=== PATIENT | female | born 1955 | race Caucasian/White ===

== ENCOUNTER 2020-01-28 11:40 | Outpatient (REF) | payer OTHER, SELFPAY ==
[2020-01-28 14:10] LABS: Anion Gap 11 (12-20); Blood Urea Nitrogen 12 mg/dL (9-16); Calcium 9.3 mg/dL (8.4-10.2); Carbon Dioxide 34 mmol/L (22-29); Chloride 99 mmol/L (96-108); Estimated Glomerular Filt Rate > 60; Glucose Random 97 mg/dL (60-115); Potassium 3.6 mmol/l (3.3-5.1); Sodium 140 mmol/L (135-145)
[2020-01-28 14:34] LABS: Free T4 (Free Thyroxine) 0.89 ng/dL (0.71-1.85); Thyroid Stimulating Hormone 3.98 uIU/mL (0.32-4.0)
== END 2020-01-28 11:41 | disposition home or self-care (01) ==
LOC: HO.10HDL 11:40
PROVIDERS: Visit Provider Internal Medicine
DX: E03.9 Hypothyroidism, unspecified (principal); I10 Essential (primary) hypertension
CPT/HCPCS: 80048; 84439; 84443

== ENCOUNTER 2020-04-29 11:09 | Outpatient (REF) | payer OTHER, SELFPAY ==
[2020-04-29 13:33] LABS: MANUAL DIFF FLAG NO
[2020-04-29 13:37] LABS: Basophils Percent Auto 0.6 % (0-2); Eosinophils Absolute Auto 0.2 X10*3/uL (0.0-0.4); Eosinophils Percent Auto 3.4 % (0-4); Imm Gran Abs Auto 0.01 X10*3/uL (0.00-0.03); Imm Gran Pct Auto 0.2 % (0.0-0.4); Lymphocytes Absolute Auto 2.7 X10*3/uL (1.2-4.9); Lymphocytes Percent Auto 40.6 % (20-40); Mean Corpuscular HGB Conc 34.9 g/dl (31.0-35.0); Mean Corpuscular Hemoglobin 32.3 pg (27.0-33.0); Mean Corpuscular Volume 92.7 fL (80-98); Mean Platelet Volume 9.6 fL (9.4-12.3); Monocytes Absolute Auto 0.6 X10*3/uL (0.1-1.2); Monocytes Percent Auto 8.6 % (2-11); Neutrophils Percent Auto 46.6 % (45-73); Platelet Count 148 X10*3/uL (160-400); Red Blood Count 4.64 X10*6/uL (4.20-5.50); Red Cell Distribution Width 11.8 % (11.0-16.0); White Blood Count 6.5 X10*3/uL (4.8-10.8)
[2020-04-29 14:04] LABS: Alanine Aminotransferase 62 U/L (0-31); Albumin Level 4.4 g/dL (3.5-5.0); Alkaline Phosphatase 75 U/L (39-117); Anion Gap 12 (12-20); Aspartate Amino Transferase 51 U/L (5-31); Blood Urea Nitrogen 11 mg/dL (9-16); Calcium 9.4 mg/dL (8.4-10.2); Carbon Dioxide 30 mmol/L (22-29); Chloride 103 mmol/L (96-108); Estimated Glomerular Filt Rate > 60; Glucose Random 97 mg/dL (60-115); Potassium 3.9 mmol/L (3.3-5.1); Sodium 141 mmol/L (135-145); Total Protein 6.9 g/dL (6.5-8.0)
[2020-04-29 14:19] LABS: Free T4 (Free Thyroxine) 0.96 ng/dL (0.71-1.85)
== END 2020-04-29 11:10 | disposition home or self-care (01) ==
LOC: HO.10HDL 11:09
PROVIDERS: Visit Provider Internal Medicine
DX: I10 Essential (primary) hypertension (principal); E03.9 Hypothyroidism, unspecified
CPT/HCPCS: 36415; 80053; 84439; 84443; 85025

== ENCOUNTER 2020-05-06 12:48 | Outpatient (REF) | payer OTHER, SELFPAY | END 2020-05-06 12:49 | disposition home or self-care (01) | LOC: HO.LAB 12:48 | PROVIDERS: Visit Provider Internal Medicine | DX: Z20.822 Contact with and (suspected) exposure to COVID-19 (principal) | CPT/HCPCS: 36415; C9803; U0003; U0005 ==

== ENCOUNTER 2020-09-11 14:24 | Emergency (ER) | payer OTHER, SELFPAY ==
--- NOTE | ~2020-09-11 | XR_ITS ---
EXAMINATION: XR CHEST CLINICAL INFORMATION: Shortness of breath. Cough. Left-sided lung pain. COMPARISON: None TECHNIQUE: 2 views of the chest were obtained. FINDINGS: No significant abnormality is noted involving the heart, lungs, mediastinum, bony thorax or soft tissues. Mild multilevel degenerative spondylosis is seen in the spine. XR/XR chest 2V IMPRESSION: No radiographic evidence of acute pulmonary disease, unchanged since 10/24/2014.
[2020-09-11 14:38] VITALS: BP 171/97; PULSE 93; RESP 18; TEMP 36.8; O2SAT 97; BMI 30.2
--- NOTE | 2020-09-11 15:09 | ED_ITS ---
HPI - General Adult General Chief complaint: General Medical Stated complaint: multiple complaints Time Seen by Provider: 09/11/20 15:03 Source: patient Mode of arrival: ambulatory Limitations: no limitations History of Present Illness HPI narrative: 65 y/o female with history of asthma & HTN who presents to the ER with dry coughing, lung pain (L>R) and headaches for a long time. She states she is sick of feeling sick so she came in for evaluation. She reports being diagnosed with asthma and seasonal allergies last year and has not felt the same since. She feels likes she has the flu or another respiratory virus. She is fully vaccinated against COVID-19 as of last night but reports an exposure before she was vaccinated. She reports intermittent chills, nausea and dull headaches. She denies fevers, vomiting, chest pain, abdominal pain, myalgias, urinary symptoms. MD complaint: cough Onset (ago): week(s) Location: chest Radiation: non-radiation Severity: moderate Severity scale (1-10): 7 Quality: aching Pain Consistency: intermittent Relieving factors: none Exacerbating factors: other (coughing) Associated symptoms: cough, fever/chills, headaches, malaise and nausea/vomiting Treatments prior to arrival: none Related Data Previous Rx's Medication Instructions Recorded azithromycin [Zithromax Z-Ojsh] See Rx Instructions .ROUTE 09/11/20 .COMPLEX #6 tab hydrocodone-homatropine [Hycodan] 5 ml PO Q6H PRN #60 ml 09/11/20 prednisone 40 mg PO DAILY #10 tab 09/11/20 Allergies Allergy/AdvReac Type Severity Reaction Status Date / Time No Known Allergies Allergy Verified 09/11/20 14:37 [No Known Allergies*] Review of Systems Review of Systems: Constitutional: No Fever, + Chills ENT/Mouth: No sore throat, No Rhinorrhea, No Swallowing Difficulty Eyes: No Eye Pain, No Swelling, No Redness Cardiovascular: No Chest Pain, No SOB, No Orthopnea, No Edema Respiratory: + Cough, No Sputum, No Wheezing, No dyspnea Gastrointestinal: + Nausea, No Vomiting, No Diarrhea, No abdominal Pain Genitourinary: No Dysuria, No Urinary Frequency, No Hematuria Musculoskeletal: No joint pain, No Myalgias Skin: No Skin Lesions, No rash Neuro: No Weakness, No Numbness, No Dizziness, + Headache Psych: + Anxiety/Panic, No Depression Heme/Lymph: No Bruising, No Lymphadenopathy Endocrine: No Polyuria, No Polydipsia [facility] Past Medical History Medical History (Updated 09/11/20 @ 17:32 by JAYASHREE Kenyon) Asthma Carpal tunnel syndrome Hypertension Surgical History (Updated 09/11/20 @ 14:39 by Elizabeth Bell RN) History of ear surgery S/P thyroid surgery Social History Social History Alcohol intake: never Patient Tobacco Use Status: Never used Tobacco Smoked in Last 30 Days: No Use of substances other than those prescribed or required for medical reasons: No Advance Directives: No Advance Directives Information Provided: Yes Patient : No Physical Exam Vital Signs: Vital Signs: Last Vital Signs Temp 98.2 F 09/11/20 14:38 Pulse 81 09/11/20 15:15 Resp 16 09/11/20 15:15 BP 153/109 H 09/11/20 15:15 Pulse Ox 97 09/11/20 15:15 Body Mass Index 30.2 Appearance: Alert. Oriented X3. No acute distress. Eyes: Pupils equal, round and reactive to light. ENT: Pharynx normal. Neck: Normal inspection. Neck supple. CVS: Normal heart rate and rhythm. Pulses normal. Respiratory: No respiratory distress. Breath sounds normal. Chest wall non- tender Abdomen: Obese, Soft and nontender. +BS x4. No CVA tenderness Skin: Skin warm and dry. Normal skin color. Normal skin turgor. No rashes. Extremities: No lower extremity edema. Neuro: Oriented X 3. No motor deficit. No sensory deficit. Course Course Course Narrative: 65 y/o female with history of HTN and asthma presenting with feeling unwell with reports of chronic cough associated with lung pain & headaches. Never smoker. No respiratory distress or hypoxia and lungs are clear. Will get CXR, EKG and lab workup for further assessment. Reevaluation(s) Reevaluation #1: Lab workup is unremarkable. EKG without ischemic changes, CXR without PNA. Mild transaminitis which is improved from prior. No RUQ Pain. Will plan to treat for bronchitis given persistent coughing. Will have her follow up with her PCP next week or come back to the ER if symptoms change or worsen. Patient agrees with plan. Medical Decision Making Lab Data Result diagrams: 09/11/20 15:23 09/11/20 15:23 Labs: Lab Results 09/11/20 09/11/20 09/11/20 Range/Units 15:14 15:22 15:23 WBC 7.2 (4.8-10.8) X10*3/uL RBC 4.67 (4.20-5.50) X10*6/uL Hgb 14.9 (12.0-16.0) g/dl Hct 43.0 (37-47) % MCV 92.1 (80-98) fL MCH 31.9 (27.0-33.0) pg MCHC 34.7 (31.0-35.0) g/dl RDW 11.6 (11.0-16.0) % Plt Count 166 (160-400) X10*3/uL MPV 9.4 (9.4-12.3) fL Immature Gran % (Auto) 0.1 (0.0-0.4) % Neut % (Auto) 48.7 (45-73) % Lymph % (Auto) 38.3 (20-40) % Isabella % (Auto) 9.4 (2-11) % Eos % (Auto) 2.9 (0-4) % Baso % (Auto) 0.6 (0-2) % Lymph # (Auto) 2.8 (1.2-4.9) X10*3/uL Isabella # (Auto) 0.7 (0.1-1.2) X10*3/uL Eos # (Auto) 0.2 (0.0-0.4) X10*3/uL Baso # (Auto) 0.0 (0.0-0.2) X10*3/uL Abs Immat Gran (auto) 0.01 (0.00-0.03) X10*3/uL Absolute Neuts (auto) 3.5 (2.0-8.3) X10*3/uL Absolute Nucleated RBC 0.000 (0.0-0.012) X10*3/uL Nucleated RBC % (auto) 0.0 (0.0-0.2) /100WBC Sodium (135-145) mmol/L Potassium (3.3-5.1) mmol/L Chloride (96-108) mmol/L Carbon Dioxide (22-29) mmol/L Anion Gap (12-20) BUN (9-16) mg/dL Creatinine (0.5-1.4) mg/dL Estim Creat Clear Calc Estimated GFR Random Glucose (60-115) mg/dL Calcium (8.4-10.2) mg/dL Magnesium (1.6-2.6) mg/dL Total Bilirubin (0.0-1.0) mg/dL Direct Bilirubin (0.0-0.5) mg/dL AST (5-31) U/L ALT (0-31) U/L Alkaline Phosphatase (39-117) U/L B-Natriuretic Peptide (<100) pg/mL Total Protein (6.5-8.0) g/dL Albumin (3.5-5.0) g/dL Procalcitonin ng/mL Urine Color YELLOW Urine Appearance CLEAR Urine pH 6.0 (5.0-8.0) Ur Specific [place] 1.010 (1.005-1.025) Urine Protein NEG (NEG-TRACE) MG/DL Urine Glucose (UA) NEG (NEG) MG/DL Urine Ketones NEG (NEG) MG/DL Urine Blood TRACE (NEG) Urine Nitrite NEG (NEG) Ur Leukocyte Esterase TRACE H (NEG) Urine RBC 0-2 (0) /HPF Urine WBC 0-2 (0-4) /HPF Ur Squamous Epith Cells TRACE /LPF Urine Bacteria TRACE /LPF Coronavirus (PCR) NEGATIVE (Negative) Influenza Type A (PCR) NEGATIVE (Negative) Influenza Type B (PCR) NEGATIVE (Negative) RSV RNA Qual (PCR) NEGATIVE (Negative) 09/11/20 09/11/20 09/11/20 Range/Units 15:23 15:23 15:23 WBC (4.8-10.8) X10*3/uL RBC (4.20-5.50) X10*6/uL Hgb (12.0-16.0) g/dl Hct (37-47) % MCV (80-98) fL MCH (27.0-33.0) pg MCHC (31.0-35.0) g/dl RDW (11.0-16.0) % Plt Count (160-400) X10*3/uL MPV (9.4-12.3) fL Immature Gran % (Auto) (0.0-0.4) % Neut % (Auto) (45-73) % Lymph % (Auto) (20-40) % Isabella % (Auto) (2-11) % Eos % (Auto) (0-4) % Baso % (Auto) (0-2) % Lymph # (Auto) (1.2-4.9) X10*3/uL Isabella # (Auto) (0.1-1.2) X10*3/uL Eos # (Auto) (0.0-0.4) X10*3/uL Baso # (Auto) (0.0-0.2) X10*3/uL Abs Immat Gran (auto) (0.00-0.03) X10*3/uL Absolute Neuts (auto) (2.0-8.3) X10*3/uL Absolute Nucleated RBC (0.0-0.012) X10*3/uL Nucleated RBC % (auto) (0.0-0.2) /100WBC Sodium 140 (135-145) mmol/L Potassium 3.9 (3.3-5.1) mmol/L Chloride 104 (96-108) mmol/L Carbon Dioxide 25 (22-29) mmol/L Anion Gap 15 (12-20) BUN 8 L (9-16) mg/dL Creatinine 0.83 (0.5-1.4) mg/dL Estim Creat Clear Calc 70.0 Estimated GFR > 60 Random Glucose 93 (60-115) mg/dL Calcium 10.3 H D (8.4-10.2) mg/dL Magnesium 2.0 (1.6-2.6) mg/dL Total Bilirubin 0.8 (0.0-1.0) mg/dL Direct Bilirubin 0.3 (0.0-0.5) mg/dL AST 50 H (5-31) U/L ALT 56 H (0-31) U/L Alkaline Phosphatase 75 (39-117) U/L B-Natriuretic Peptide 28 (<100) pg/mL Total Protein 7.6 (6.5-8.0) g/dL Albumin 4.7 (3.5-5.0) g/dL Procalcitonin 0.08 ng/mL Urine Color Urine Appearance Urine pH (5.0-8.0) Ur Specific [place] (1.005-1.025) Urine Protein (NEG-TRACE) MG/DL Urine Glucose (UA) (NEG) MG/DL Urine Ketones (NEG) MG/DL Urine Blood (NEG) Urine Nitrite (NEG) Ur Leukocyte Esterase (NEG) Urine RBC (0) /HPF Urine WBC (0-4) /HPF Ur Squamous Epith Cells /LPF Urine Bacteria /LPF Coronavirus (PCR) (Negative) Influenza Type A (PCR) (Negative) Influenza Type B (PCR) (Negative) RSV RNA Qual (PCR) (Negative) ECG Data Attestation: I personally reviewed and interpreted this ECG as follows: Interpretation: normal sinus rhythm, HR 71 bpm, MO interval is normal, No ST segment elevation or depression Critical Care Time Critical Care Time Critical Care Time: No Discharge Plan Discharge Clinical Impression: Bronchitis Patient Disposition: Home, Self-Care Instructions: Acute Bronchitis (ED) Additional Instructions: Your lab workup today was unremarkable. Your chest x-ray did not show any evidence of pneumonia. You were negative for COVID, Flu and RSV. Take the prescribed medications for bronchitis. Follow up with your doctor next week. If you develop new or worsening symptoms call 911 or come back to the ER for further evaluation. Prescriptions: New azithromycin [Zithromax Z-Josh] 250 mg tablet See Rx Instructions .ROUTE .COMPLEX Qty: 6 RF: 0 prednisone 20 mg tablet 40 mg PO DAILY Qty: 10 RF: 0 hydrocodone-homatropine [Hycodan] 5-1.5 mg/5 mL (5 mL) syrup 5 ml PO Q6H PRN (Reason: cough) Qty: 60 RF: 0 Referrals: Yomi Tamez MD [Primary Care Provider] - 1 week
[2020-09-11 15:15] VITALS: BP 153/109; PULSE 81; RESP 16; O2SAT 97
--- NOTE | 2020-09-11 15:15 | ECG_ITS ---
Test Reason : CHEST PAIN Blood Pressure : / mmHG Vent. Rate : 071 BPM Atrial Rate : 071 BPM P-R Int : 152 ms QRS Dur : 082 ms QT Int : 400 ms P-R-T Axes : 035 -14 029 degrees QTc Int : 434 ms Normal sinus rhythm Normal ECG When compared with ECG of 30-JUN-2014 11:33, No significant change was found Referred By: Loli Luz Electronically Signed By:QUE FERNANDEZ MD
[2020-09-11 15:24] LABS: Glucose Urine UA NEG (NEG); Leukocyte Esterase Urine TRACE (NEG); Nitrite Urine NEG (NEG); UACC Culture Trigger YES; Urine Blood TRACE (NEG); Urine Ketones NEG (NEG); Urine Protein NEG (NEG-TRACE)
[2020-09-11 15:26] LABS: Appearance Urine CLEAR; Color Urine YELLOW
[2020-09-11 15:29] LABS: MANUAL DIFF FLAG NO
[2020-09-11 15:30] LABS: Basophils Percent Auto 0.6 % (0-2); Eosinophils Absolute Auto 0.2 X10*3/uL (0.0-0.4); Eosinophils Percent Auto 2.9 % (0-4); Hemoglobin 14.9 g/dl (12.0-16.0); Imm Gran Abs Auto 0.01 X10*3/uL (0.00-0.03); Imm Gran Pct Auto 0.1 % (0.0-0.4); Lymphocytes Absolute Auto 2.8 X10*3/uL (1.2-4.9); Lymphocytes Percent Auto 38.3 % (20-40); Mean Corpuscular HGB Conc 34.7 g/dl (31.0-35.0); Mean Corpuscular Hemoglobin 31.9 pg (27.0-33.0); Mean Corpuscular Volume 92.1 fL (80-98); Mean Platelet Volume 9.4 fL (9.4-12.3); Monocytes Absolute Auto 0.7 X10*3/uL (0.1-1.2); Monocytes Percent Auto 9.4 % (2-11); Neutrophils Absolute Auto 3.5 X10*3/uL (2.0-8.3); Neutrophils Percent Auto 48.7 % (45-73); Platelet Count 166 X10*3/uL (160-400); Red Blood Count 4.67 X10*6/uL (4.20-5.50); Red Cell Distribution Width 11.6 % (11.0-16.0); White Blood Count 7.2 X10*3/uL (4.8-10.8)
[2020-09-11 15:47] LABS: Bacteria Urine TRACE /LPF; RBC Urine 0-2 /HPF (0); Squamous Epithelial Cell Urine TRACE /LPF; WBC Urine 0-2 /HPF (0-4)
[2020-09-11 16:02] LABS: Alanine Aminotransferase 56 U/L (0-31); Albumin Level 4.7 g/dL (3.5-5.0); Alkaline Phosphatase 75 U/L (39-117); Anion Gap 15 (12-20); Aspartate Amino Transferase 50 U/L (5-31); Bilirubin Direct 0.3 mg/dL (0.0-0.5); Bilirubin Total 0.8 mg/dL (0.0-1.0); Blood Urea Nitrogen 8 mg/dL (9-16); Calcium 10.3 mg/dL (8.4-10.2); Carbon Dioxide 25 mmol/L (22-29); Chloride 104 mmol/L (96-108); Estimated Glomerular Filt Rate > 60; Glucose Random 93 mg/dL (60-115); Potassium 3.9 mmol/L (3.3-5.1); Sodium 140 mmol/L (135-145); Total Protein 7.6 g/dL (6.5-8.0)
[2020-09-11 16:09] LABS: B Type Natriuretic Peptide 28 pg/mL (<100)
[2020-09-11 16:21] LABS: Influenza A PCR NEGATIVE (Negative); Influenza B PCR NEGATIVE (Negative); Resp Syncy Virus RNA Qual PCR NEGATIVE (Negative); SARS COV2 PCR INHOUSE NEGATIVE (Negative)
[2020-09-11 16:26] LABS: Procalcitonin 0.08 ng/mL
== END 2020-09-11 17:46 | disposition home or self-care (01) ==
PROVIDERS: Physician Assistant; Emergency Provider Emergency Medicine Emergency Medical Services; PCP Internal Medicine
DX: J40 Bronchitis, not specified as acute or chronic (principal); I10 Essential (primary) hypertension; J45.909 Unspecified asthma, uncomplicated; Z20.822 Contact with and (suspected) exposure to COVID-19
CPT/HCPCS: 0241U; 36415; 71046; 80048; 80076; 81001; 81003; 83735; 83880; 84145; 85025; 87086; 93005; 99283; 99284

== ENCOUNTER 2021-01-27 10:41 | Outpatient (REF) | payer OTHER, SELFPAY ==
[2021-01-27 13:45] LABS: MANUAL DIFF FLAG NO
[2021-01-27 13:59] LABS: Basophils Absolute Auto 0.1 X10*3/uL (0.0-0.2); Basophils Percent Auto 0.6 % (0-2); Eosinophils Absolute Auto 0.3 X10*3/uL (0.0-0.4); Eosinophils Percent Auto 3.3 % (0-4); Hematocrit 40.8 % (37.0-47.0); Imm Gran Abs Auto 0.01 X10*3/uL (0.00-0.03); Imm Gran Pct Auto 0.1 % (0.0-0.4); Lymphocytes Absolute Auto 2.7 X10*3/uL (1.2-4.9); Lymphocytes Percent Auto 33.9 % (20-40); Mean Corpuscular HGB Conc 34.3 g/dl (31.0-35.0); Mean Corpuscular Hemoglobin 31.6 pg (27.0-33.0); Mean Corpuscular Volume 92.1 fL (80.0-98.0); Mean Platelet Volume 10.1 fL (9.4-12.3); Monocytes Absolute Auto 0.8 X10*3/uL (0.1-1.2); Neutrophils Absolute Auto 4.1 x10*3/uL (2.0-8.3); Neutrophils Percent Auto 52.1 % (45-73); Platelet Count 172 X10*3/uL (160-400); Red Blood Count 4.43 X10*6/uL (4.20-5.50); Red Cell Distribution Width 11.6 % (11.0-16.0); White Blood Count 7.9 X10*3/uL (4.8-10.8)
[2021-01-27 14:43] LABS: Free T4 (Free Thyroxine) 0.93 ng/dL (0.71-1.85); Thyroid Stimulating Hormone 4.24 uIU/mL (0.32-4.0)
[2021-01-27 14:45] LABS: Alanine Aminotransferase 33 U/L (0-31); Albumin Level 4.3 g/dL (3.5-5.0); Alkaline Phosphatase 72 U/L (39-117); Anion Gap 12 (12-20); Aspartate Amino Transferase 29 U/L (5-31); Bilirubin Total 0.8 mg/dL (0.0-1.0); Blood Urea Nitrogen 11 mg/dL (9-16); Calcium 9.9 mg/dL (8.4-10.2); Carbon Dioxide 30 mmol/L (22-29); Chloride 100 mmol/L (96-108); Cholesterol 195 mg/dL; Estimated Glomerular Filt Rate > 60; Glucose Random 99 mg/dL (60-115); Potassium 3.4 mmol/L (3.3-5.1); Sodium 139 mmol/L (135-145); Total Protein 6.9 g/dL (6.5-8.0)
== END 2021-01-27 10:42 | disposition home or self-care (01) ==
LOC: HO.10HDL 10:41
PROVIDERS: Visit Provider Internal Medicine
DX: I10 Essential (primary) hypertension (principal); E03.9 Hypothyroidism, unspecified
CPT/HCPCS: 36415; 80053; 82465; 84439; 84443; 85025

== ENCOUNTER 2021-02-24 11:49 | Outpatient (REF) | payer OTHER, SELFPAY ==
[2021-02-24 14:37] LABS: Free T4 (Free Thyroxine) 0.86 ng/dL (0.71-1.85); Thyroid Stimulating Hormone 1.72 uIU/mL (0.32-4.0)
== END 2021-02-24 11:50 | disposition home or self-care (01) ==
LOC: HO.10HDL 11:49
PROVIDERS: Visit Provider Internal Medicine
DX: E03.9 Hypothyroidism, unspecified (principal)
CPT/HCPCS: 36415; 84439; 84443

== ENCOUNTER 2021-11-03 12:24 | Emergency (ER) | payer MEDICARE, MEDICAID, SELFPAY ==
[2021-11-03 12:32] VITALS: BP 186/113; PULSE 66; RESP 16; TEMP 36.7; O2SAT 96
[2021-11-03 13:24] VITALS: BMI 30.5
--- NOTE | 2021-11-03 14:09 | ED_ITS ---
HPI - Ear Problem General Chief complaint: Ear Problems Stated complaint: r ear pain headache cough Time Seen by Provider: 11/03/21 14:09 Source: patient Mode of arrival: ambulatory Limitations: no limitations History of Present Illness HPI Narrative: 66-year-old female with history of hypertension and recurrent ear infections on the right side, history of ear surgery in the past who presents to the ER for evaluation of worsening right-sided ear pain and drainage for the last several days. She reports the drainage is foul smelling and she has decreased hearing on the right side. She reports ongoing pain and issues with the right side for many weeks. She was on oral antibiotics from her doctor about 2 months ago. She had brief improvement in her symptoms in the restarted. She does not swim or get water in her ears. She reports the pain is starting to radiate into her head and jaw. She is not diabetic. She has had no fever or chills. MD Complaint: ear pain, ear discharge and decreased hearing Location: right ear Duration: constant Severity: moderate Relieving factors: nothing Exacerbating factors: chewing, position of head and palpation Discharge from ear: yes - purulent Associated symptoms ear: decreased hearing, external ear tenderness and ear swelling Treatment prior to arrival: none Related Data Previous Rx's Medication Instructions Recorded azithromycin 250 mg tablet See Rx Instructions PO .COMPLEX #6 09/11/20 (Zithromax Z-Josh) tabs hydrocodone-homatropine 5 mg-1.5 5 ml PO Q6H PRN cough #60 mL 09/11/20 mg/5 mL (5 mL) oral syrup (Hycodan) prednisone 20 mg tablet 40 mg PO DAILY #10 tabs 09/11/20 ciprofloxacin 0.3 %-dexamethasone 4 drp otic (ears) BID 7 days #7.5 11/03/21 0.1 % ear drops,suspension mL (Ciprodex) ciprofloxacin HCl 500 mg tablet 500 mg PO BID #20 tabs 11/03/21 Allergies Allergy/AdvReac Type Severity Reaction Status Date / Time No Known Allergies Allergy Verified 09/11/20 14:37 [No Known Allergies*] Review of Systems Review of Systems: Constitutional: No Fever, No Chills ENT/Mouth: No sore throat, No Rhinorrhea, No Swallowing Difficulty, +Otalgia, +ear drainage Eyes: No Eye Pain, No Swelling, No Redness Cardiovascular: No Chest Pain, No SOB Respiratory: No Cough, No Sputum Gastrointestinal: No Nausea, No Vomiting Musculoskeletal: No joint pain, No Myalgias Skin: No Skin Lesions, No rash Neuro: No Weakness, No Numbness, No Dizziness,+Headache Heme/Lymph: No Lymphadenopathy [facility] Past Medical History Medical History (Updated 11/03/21 @ 14:33 by JAYASHREE Kenyon) Asthma Carpal tunnel syndrome Hypertension Surgical History (Updated 09/11/20 @ 14:39 by Elizabeth Bell RN) History of ear surgery S/P thyroid surgery Social History Social History Alcohol intake: never Patient Tobacco Use Status: Never used Tobacco Advance Directives: No Advance Directives Information Provided: Yes Physical Exam Vital Signs: Vital Signs: Last Vital Signs Temp 98.0 F 11/03/21 12:32 Pulse 66 11/03/21 12:32 Resp 16 11/03/21 12:32 BP 186/113 H 11/03/21 12:32 Pulse Ox 96 11/03/21 12:32 O2 Del Method 11/03/21 12:32 BMI result Body Mass Index 30.5 Appearance: Alert. Oriented X3. No acute distress. HEENT: normal external inspection. Left EAC and TM are normal. Right external auditory canal with moderate swelling, significant amount of purulence, foul smelling discharge with and erythematous area centrally, unable to fully visualize the tympanic membrane. No mastoid tenderness bilaterally. No trismus. CVS: Normal heart rate and rhythm. Pulses normal. Respiratory: No respiratory distress. Lungs are clear throughout Skin: Skin warm and dry. Normal skin color. Normal skin turgor. No rashes. Extremities: Normal inspection, normal range of motion x4 Neuro: Oriented X 3. No motor deficit. No sensory deficit. Course Course Course Narrative: 66-year-old female presents to the ER with right-sided ear pain for the last several days. She has been struggling with on and off pain and drainage with her right ear for several months. On examination she has purulence discharge in the right external auditory canal. Unable to fully visualize the tympanic membrane. There is a abrasion present. Very tender and foul-smelling. Will treat for both otitis externa and otitis media. Will use fluoroquinolones given she was recently on antibiotics and likelihood of resistance. 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 She is stable for discharge home with outpatient follow-up. Discharge Plan Discharge Clinical Impression: Otitis externa, Otitis media Patient Disposition: Home, Self-Care Instructions: Otitis Externa (ED), Ear Infection (ED) Additional Instructions: Use the prescribed antibiotic drops as directed for 1 week. Take the prescribed antibiotic pill as directed, complete the entire course. Do not get water in her ear, when you take a shower put a cotton ball in your ear so water cannot get in. Do not use Q-tips. Recommend following up with ear nose and throat doctor, name and number below. If you develop new or worsening symptoms call 911 or come back to the ER for further evaluation. Prescriptions: New ciprofloxacin-dexamethasone [Ciprodex] 0.3-0.1 % drops,suspension 4 drp otic (ears) BID 7 Days Qty: 7.5 0RF ciprofloxacin HCl 500 mg tablet 500 mg PO BID Qty: 20 0RF No Action azithromycin [Zithromax Z-Josh] 250 mg tablet See Rx Instructions .ROUTE .COMPLEX Qty: 6 0RF Rx Instructions: take 500 mg today (day 1), then 250 mg for 4 days (days 2-5) prednisone 20 mg tablet 40 mg PO DAILY Qty: 10 0RF hydrocodone-homatropine [Hycodan] 5-1.5 mg/5 mL (5 mL) syrup 5 ml PO Q6H PRN (Reason: cough) Qty: 60 0RF Rx Instructions: partial fill ok Referrals: Yomi Tamez MD [Primary Care Provider] - Jeremias Wood [Physician] -
== END 2021-11-03 14:58 | disposition home or self-care (01) ==
PROVIDERS: Emergency Provider Emergency Medicine Emergency Medical Services; PCP Internal Medicine
DX: H92.01 Otalgia, right ear (principal); H60.91 Unspecified otitis externa, right ear; H66.91 Otitis media, unspecified, right ear; I10 Essential (primary) hypertension
CPT/HCPCS: 99282; 99283

== ENCOUNTER 2021-11-18 10:06 | Outpatient (REF) | payer MEDICARE, MEDICAID, SELFPAY ==
--- NOTE | ~2021-11-18 | CT_ITS ---
EXAMINATION: CT SINUS WITHOUT CONTRAST CLINICAL INFORMATION: 66-year-old with right-sided sinuses/ear pain. COMPARISON: None TECHNIQUE: Volumetric CT imaging of the paranasal sinuses was done with multiplanar reformatted reconstructions. This CT examination was performed using dose optimization techniques as appropriate, variously including the following: *Automated exposure control *Adjustment of mA and/or kV according to patient size (this includes techniques or standardized protocols for targeted exams where dose is matched to indication/reason for exam; i.e. extremities or head) *Use of iterative reconstruction technique DLP: 101 mGy-cm FINDINGS: Nasal Cavity: There is marked nasal septal deviation to the left with a prominent spur encroaching on the left middle meatus and inferior turbinate. The olfactory recesses are clear and the olfactory grooves are symmetric. No nasal cavity masses. Visualized nasopharyngeal soft tissues are symmetric and unremarkable. Maxillary Sinuses: Well-pneumatized and clear with bilaterally patent OMCs. Ethmoid Sinuses: The ethmoid complex is unopacified, with intact bony harrison. Frontal Sinuses: The frontal sinuses are well-pneumatized and clear, with bilaterally patent drainage. Sphenoid Sinus: The sphenoid sinus is clear with bilaterally patent sphenoid ostia. The carotid canals are posterolateral and covered by bone. Additional Findings: Incidental note is made of a right-sided canal wall down mastoidectomy, with some lobulated soft tissue density in the postmastoidectomy space with thickening and increased density involving the right tympanic membrane suggesting prior tympanoplasty and/or tympanosclerosis. Correlate for any previous mastoid/otologic procedures. The visualized intracranial and intraorbital soft tissue structures appear unremarkable. There is bilateral TMJ arthrosis, left more than right. CT/CT sinus wo IV con IMPRESSION: 1. Nasal septal deviation to the left with a spur on the left with narrowing of the left nasal cavity. Otherwise no significant sinonasal inflammatory disease. 2. Evidence of a previous right-sided mastoidectomy and tympanoplasty with some lobulated soft tissue density in the postmastoidectomy space. Correlate with previous otologic procedures and clinical exam. 3. Bilateral TMJ arthropathy.
== END 2021-11-18 10:07 | disposition home or self-care (01) ==
LOC: HO.CT 10:06
PROVIDERS: PCP Internal Medicine; Visit Provider Internal Medicine
DX: J34.89 Other specified disorders of nose and nasal sinuses (principal)
CPT/HCPCS: 70486

== ENCOUNTER 2021-12-22 | Outpatient (REF) | payer MEDICARE, MEDICAID, SELFPAY ==
--- NOTE | ~2021-12-22 | XR_ITS ---
EXAMINATION: XR KNEE, AP STANDING, BILATERAL XR KNEE, LEFT CLINICAL INFORMATION: Left knee pain. COMPARISON: 10/04/2018 TECHNIQUE: Standing AP view of both knees and lateral and sunrise views of the left knee. FINDINGS: LEFT KNEE: Again seen is nonuniform medial compartment joint space narrowing with foupc-gq-msmznwgct size marginal osteophytes. Marginal osteophytes are more pronounced as compared to prior. There is nonuniform joint space narrowing in the medial aspect of the patellofemoral compartment with associated articular cortical remodeling at the medial trochlear facet. More mild lateral compartment osteoarthritis. No significant joint effusion. No acute fractures. RIGHT KNEE: Osteophytes at the medial compartment of the right knee are increased in size as compared to prior. There is lmnq-zh-mamzlzwh medial compartment joint space narrowing. Lateral compartment appears relatively well preserved. No acute fracture on this AP view. XR/XR knee standing BI IMPRESSION: Fppp-sr-[id number] medial compartment osteoarthritis in both knees has slightly progressed as compared to prior. Additional omjs-bg-kjwqnygf osteoarthritis in the medial facets of the left patellofemoral compartment.
--- NOTE | ~2021-12-22 | XR_ITS ---
EXAMINATION: XR KNEE, AP STANDING, BILATERAL XR KNEE, LEFT CLINICAL INFORMATION: Left knee pain. COMPARISON: 10/04/2018 TECHNIQUE: Standing AP view of both knees and lateral and sunrise views of the left knee. FINDINGS: LEFT KNEE: Again seen is nonuniform medial compartment joint space narrowing with rinop-nr-nbibosrut size marginal osteophytes. Marginal osteophytes are more pronounced as compared to prior. There is nonuniform joint space narrowing in the medial aspect of the patellofemoral compartment with associated articular cortical remodeling at the medial trochlear facet. More mild lateral compartment osteoarthritis. No significant joint effusion. No acute fractures. RIGHT KNEE: Osteophytes at the medial compartment of the right knee are increased in size as compared to prior. There is awkq-jj-pdiwitzj medial compartment joint space narrowing. Lateral compartment appears relatively well preserved. No acute fracture on this AP view. XR/XR knee LT 2V IMPRESSION: Zghg-ca-fylsztnj medial compartment osteoarthritis in both knees has slightly progressed as compared to prior. Additional [id number] osteoarthritis in the medial facets of the left patellofemoral compartment.
== END 2021-12-22 00:01 | disposition home or self-care (01) ==
LOC: HO.HOSX
PROVIDERS: Visit Provider Physician Assistant
DX: M17.12 Unilateral primary osteoarthritis, left knee (principal); M25.561 Pain in right knee; Z91.81 History of falling
CPT/HCPCS: 20610; 73560; 73565; 99202; J1040

== ENCOUNTER 2022-05-17 11:40 | Outpatient (REF) | payer OTHER, SELFPAY ==
[2022-05-17 13:43] LABS: MANUAL DIFF FLAG NO
[2022-05-17 13:48] LABS: Basophils Percent Auto 0.4 % (0-2); Eosinophils Absolute Auto 0.1 X10*3/uL (0.0-0.4); Eosinophils Percent Auto 1.2 % (0-4); Hematocrit 43.8 % (37.0-47.0); Hemoglobin 14.8 g/dl (12.0-16.0); Imm Gran Abs Auto 0.03 X10*3/uL (0.00-0.03); Imm Gran Pct Auto 0.4 % (0.0-0.4); Lymphocytes Absolute Auto 2.7 X10*3/uL (1.2-4.9); Lymphocytes Percent Auto 35.4 % (20-40); Mean Corpuscular HGB Conc 33.8 g/dl (31.0-35.0); Mean Corpuscular Hemoglobin 31.4 pg (27.0-33.0); Mean Corpuscular Volume 92.8 fL (80.0-98.0); Mean Platelet Volume 10.4 fL (9.4-12.3); Monocytes Absolute Auto 0.6 X10*3/uL (0.1-1.2); Monocytes Percent Auto 7.6 % (2-11); Neutrophils Absolute Auto 4.3 x10*3/uL (2.0-8.3); Platelet Count 206 X10*3/uL (160-400); Red Blood Count 4.72 X10*6/uL (4.20-5.50); Red Cell Distribution Width 11.6 % (11.0-16.0); White Blood Count 7.7 X10*3/uL (4.8-10.8)
[2022-05-17 14:16] LABS: Alanine Aminotransferase 33 U/L (0-31); Albumin Level 4.4 g/dL (3.5-5.0); Alkaline Phosphatase 60 U/L (39-117); Anion Gap 12 (12-20); Aspartate Amino Transferase 28 U/L (5-31); Bilirubin Total 0.9 mg/dL (0.0-1.0); Blood Urea Nitrogen 12 mg/dL (9-16); Calcium 9.4 mg/dL (8.4-10.2); Carbon Dioxide 29 mmol/L (22-29); Chloride 105 mmol/L (96-108); Cholesterol 180 mg/dL; Estimated Glomerular Filt Rate 55; Glucose Random 101 mg/dL (60-115); Potassium 4.3 mmol/L (3.3-5.1); Sodium 142 mmol/L (135-145); Total Protein 6.9 g/dL (6.5-8.0)
[2022-05-17 14:38] LABS: Free T4 (Free Thyroxine) 0.92 ng/dL (0.71-1.85); Thyroid Stimulating Hormone 3.31 uIU/mL (0.32-4.0)
== END 2022-05-17 11:41 | disposition home or self-care (01) ==
LOC: HO.10HDL 11:40
PROVIDERS: Visit Provider Internal Medicine
DX: I10 Essential (primary) hypertension (principal); E03.9 Hypothyroidism, unspecified
CPT/HCPCS: 36415; 80053; 82465; 84439; 84443; 85025

== ENCOUNTER → 2022-05-29 14:31 | Outpatient (BNVA) | payer OTHER, SELFPAY | PROVIDERS: PCP Internal Medicine; Visit Provider Physician Assistant | DX: M17.12 Unilateral primary osteoarthritis, left knee (principal) | CPT/HCPCS: 20610; 99212; J1040 ==

== ENCOUNTER 2022-06-20 14:06 | Outpatient (REF) | payer OTHER, MEDICAID, SELFPAY ==
--- NOTE | ~2022-06-20 | MM_ITS ---
EXAMINATION: BONE DENSITOMETRY CLINICAL INDICATION: Menopausal. COMPARISON: Previous BD dated 11/03/2014 and baseline BD dated 10/27/2008. TECHNIQUE: Using a Holographic Projection for Architecture DXA System (software version: 13.1) manufactured by [employer], dual-energy x-ray absorptiometry was performed of the lumbar spine and left hip. The images are of good technical quality. Summary results are attached. FINDINGS: AP SPINE L1-L4: Current: BMD 0.995 g/cm2, Z-score -0.4, T-score -1.5, osteopenia, 3.3% decrease from previous, 0.9% increase from baseline (<5% change is not significant). Prior: BMD 1.029 g/cm2. Baseline: BMD 0.986 g/cm2. LEFT FEMUR, NECK: Current: BMD 0.784 g/cm2, Z-score -0.6, T-score -1.8, osteopenia. Prior: BMD 0.948 g/cm2. Baseline: BMD 0.926 g/cm2. LEFT FEMUR, TOTAL: Current: BMD 0.936 g/cm2, Z-score 0.3, T-score -0.6, normal, 11.7% decrease from previous, 15.1% decrease from baseline (<5% change is not significant). Prior: BMD 1.060 g/cm2. Baseline: BMD 1.103 g/cm2. IDENTIFIED RISK FACTORS: Early menopause, hyperthyroid, secondary osteoporosis. HISTORY OF FRACTURE: None listed. MEDICATIONS: Calcium supplements or multivitamin, vitamin D. MM/XR DEXA axial skeleton IMPRESSION: 1. DIAGNOSIS: Osteopenia based on the lowest T-score value of -1.8 in the femoral neck applying World Health Organization criteria. 2. 10-YEAR FRACTURE RISK PREDICTION, FRAX: Major osteoporotic fracture (clinical spine, forearm, hip or shoulder) 10.0%. Hip fracture 1.4%. 3. Treatment Recommendations: NOF guidelines recommend consideration for treatment in postmenopausal women and men age 50 and older presenting with the following: -A hip or vertebral (clinical or morphometric) fracture. -T-score less than or equal to -2.5 at the femoral neck or spine after appropriate evaluation to exclude secondary causes. -Low bone mass at the hip or spine and a 10-year fracture probability by FRAX of greater than or equal to 3% for hip fracture or greater than or equal to 20% for major osteoporotic fracture based on the [place] adapted WHO algorithm. 4. Other Recommendations: All treatment decisions require clinical judgment and consideration of individual patient factors, including patient preferences, comorbidities, previous drug use, risk factors not captured in the FRAX model (e.g. frailty, falls, vitamin D deficiency, increased bone turnover, interval significant decline in bone density) and possible under or overestimation of fracture risk by FRAX. Additional medical evaluation for secondary cause of low bone mineral density may be appropriate. FUTURE SCAN RECOMMENDATION: People with diagnosed cases of osteoporosis or at high risk for fracture should have regular bone mineral density tests. For patients eligible for Medicare, routine testing is allowed once every 2 years. The testing frequency can be increased to one year for patients who have rapidly progressing disease, those who are receiving or discontinuing medical therapy to restore bone mass, or have additional risk factors.
--- NOTE | ~2022-06-20 | MM_ITS ---
EXAMINATION: MM SCREENING DIGITAL BREAST TOMOSYNTHESIS, BILATERAL CLINICAL INFORMATION: Screening. Asymptomatic. The lifetime risk of breast cancer based on the Tyrer-Cuzick Model is 7%. COMPARISON: Mammography: 01/29/2019, 01/15/2019, 08/24/2017, 11/03/2014, 11/01/2010, 10/27/2008; targeted right breast ultrasound 01/29/2019. TECHNIQUE: Digital breast tomosynthesis is performed in both the craniocaudal and mediolateral oblique views along with computer-aided detection (CAD). Synthesized 2D images are generated from the tomosynthesis. Additional right cleavage and left MLO views are provided. FINDINGS: There are scattered areas of fibroglandular density (ACR BI-RADS breast composition Category b). There is fine fibronodular parenchymal pattern with scattered bilateral asymmetries similar to prior exams. No significant mass or architectural abnormality or developing density. No abnormal calcifications. There are scattered increased benign rim calcifications central and anterior right breast. The axilla and skin contours are unremarkable. No significant changes from prior studies. MM/MM tomosynthesis screening BI IMPRESSION: No mammographic evidence of malignancy. ASSESSMENT: BI-RADS 2: Benign RECOMMENDATION: Routine annual mammography screening. This patient's information was entered into a reminder system with a target due date for their next mammogram.
== END 2022-06-20 14:07 | disposition home or self-care (01) ==
LOC: HO.MAMMO 14:06
PROVIDERS: PCP Internal Medicine; Visit Provider Internal Medicine
DX: Z12.31 Encounter for screening mammogram for malignant neoplasm of breast (principal); Z13.820 Encounter for screening for osteoporosis; Z78.0 Asymptomatic menopausal state
CPT/HCPCS: 77063; 77067; 77080

== ENCOUNTER 2022-09-06 11:01 | Outpatient (REF) | payer MEDICARE, MEDICAID, SELFPAY ==
[2022-09-06 13:33] LABS: MANUAL DIFF FLAG NO
[2022-09-06 13:40] LABS: Basophils Percent Auto 0.7 % (0-2); Eosinophils Absolute Auto 0.2 X10*3/uL (0.0-0.4); Eosinophils Percent Auto 2.5 % (0-4); Hematocrit 41.3 % (37.0-47.0); Hemoglobin 14.2 g/dl (12.0-16.0); Imm Gran Abs Auto 0.01 X10*3/uL (0.00-0.03); Imm Gran Pct Auto 0.2 % (0.0-0.4); Lymphocytes Absolute Auto 2.1 X10*3/uL (1.2-4.9); Mean Corpuscular HGB Conc 34.4 g/dl (31.0-35.0); Mean Corpuscular Hemoglobin 31.3 pg (27.0-33.0); Mean Corpuscular Volume 91.2 fL (80.0-98.0); Mean Platelet Volume 9.8 fL (9.4-12.3); Monocytes Absolute Auto 0.6 X10*3/uL (0.1-1.2); Monocytes Percent Auto 9.4 % (2-11); Neutrophils Absolute Auto 3.2 x10*3/uL (2.0-8.3); Neutrophils Percent Auto 53.2 % (45-73); Platelet Count 153 X10*3/uL (160-400); Red Blood Count 4.53 X10*6/uL (4.20-5.50); Red Cell Distribution Width 11.6 % (11.0-16.0); White Blood Count 6.1 X10*3/uL (4.8-10.8)
[2022-09-06 14:43] LABS: Alanine Aminotransferase 46 U/L (0-31); Albumin Level 4.2 g/dL (3.5-5.0); Alkaline Phosphatase 66 U/L (39-117); Anion Gap 13 (12-20); Aspartate Amino Transferase 36 U/L (5-31); Blood Urea Nitrogen 13 mg/dL (9-16); Calcium 10.2 mg/dL (8.4-10.2); Carbon Dioxide 28 mmol/L (22-29); Chloride 103 mmol/L (96-108); Cholesterol 170 mg/dL; Estimated Glomerular Filt Rate > 60; Glucose Fasting 89 mg/dL (60-99); HDL Cholesterol 42 mg/dL; LDL Cholesterol Calculated 95 mg/dl; Potassium 3.4 mmol/L (3.3-5.1); Sodium 141 mmol/L (135-145); Total Protein 6.9 g/dL (6.5-8.0); Triglycerides 165 mg/dL
[2022-09-06 14:51] LABS: Free T4 (Free Thyroxine) 0.93 ng/dL (0.71-1.85); Thyroid Stimulating Hormone 5.78 uIU/mL (0.32-4.0); Vitamin D 25-OH Total 70.3 ng/mL (>30)
== END 2022-09-06 11:02 | disposition home or self-care (01) ==
LOC: HO.10HDL 11:01
PROVIDERS: Visit Provider Internal Medicine
DX: I12.9 Hypertensive chronic kidney disease with stage 1 through stage 4 chronic kidney disease, or unspecified chronic kidney disease (principal); N18.9 Chronic kidney disease, unspecified; E03.9 Hypothyroidism, unspecified; M19.90 Unspecified osteoarthritis, unspecified site; M85.80 Other specified disorders of bone density and structure, unspecified site
CPT/HCPCS: 36415; 80053; 80061; 82306; 84439; 84443; 85025

== ENCOUNTER 2022-10-31 10:46 | Outpatient (REF) | payer OTHER, MEDICAID, SELFPAY ==
[2022-10-31 13:57] LABS: Thyroid Stimulating Hormone 3.69 uIU/mL (0.32-4.0)
== END 2022-10-31 10:47 | disposition home or self-care (01) ==
LOC: HO.10HDL 10:46
PROVIDERS: Visit Provider Internal Medicine
DX: E03.9 Hypothyroidism, unspecified (principal)
CPT/HCPCS: 36415; 84439; 84443

== ENCOUNTER 2023-02-16 08:12 | Outpatient (REF) | payer OTHER, MEDICAID, SELFPAY | END 2023-02-16 08:13 | disposition home or self-care (01) | LOC: HO.HOSX 08:12 | PROVIDERS: Visit Provider Physician Assistant | DX: Z13.89 Encounter for screening for other disorder (principal) ==

== ENCOUNTER 2023-03-09 11:25 | Outpatient (REF) | payer OTHER, SELFPAY ==
[2023-03-09 13:11] LABS: MANUAL DIFF FLAG NO
[2023-03-09 13:16] LABS: Basophils Percent Auto 0.4 % (0-2); Eosinophils Absolute Auto 0.1 X10*3/uL (0.0-0.4); Eosinophils Percent Auto 1.2 % (0-4); Hematocrit 44.9 % (37.0-47.0); Hemoglobin 15.3 g/dl (12.0-16.0); Imm Gran Abs Auto 0.02 X10*3/uL (0.00-0.03); Imm Gran Pct Auto 0.3 % (0.0-0.4); Lymphocytes Absolute Auto 3.4 X10*3/uL (1.2-4.9); Lymphocytes Percent Auto 46.5 % (20-40); Mean Corpuscular HGB Conc 34.1 g/dl (31.0-35.0); Mean Corpuscular Hemoglobin 31.6 pg (27.0-33.0); Mean Corpuscular Volume 92.8 fL (80.0-98.0); Mean Platelet Volume 9.9 fL (9.4-12.3); Monocytes Absolute Auto 0.7 X10*3/uL (0.1-1.2); Monocytes Percent Auto 9.9 % (2-11); Neutrophils Percent Auto 41.7 % (45-73); Platelet Count 182 X10*3/uL (160-400); Red Blood Count 4.84 X10*6/uL (4.20-5.50); Red Cell Distribution Width 11.9 % (11.0-16.0); White Blood Count 7.3 X10*3/uL (4.8-10.8)
[2023-03-09 13:35] LABS: Alanine Aminotransferase 26 U/L (0-31); Albumin Level 4.5 g/dL (3.5-5.0); Alkaline Phosphatase 64 U/L (39-117); Anion Gap 14 (12-20); Aspartate Amino Transferase 27 U/L (5-31); Bilirubin Total 0.9 mg/dL (0.0-1.0); Blood Urea Nitrogen 14 mg/dL (9-16); Calcium 10.4 mg/dL (8.4-10.2); Carbon Dioxide 28 mmol/L (22-29); Chloride 101 mmol/L (96-108); Estimated Glomerular Filt Rate 57; Glucose Random 103 mg/dL (60-115); Potassium 3.3 mmol/L (3.3-5.1); Sodium 140 mmol/L (135-145); Total Protein 7.6 g/dL (6.5-8.0)
[2023-03-09 13:51] LABS: Free T4 (Free Thyroxine) 1.02 ng/dL (0.71-1.85); Thyroid Stimulating Hormone 2.51 uIU/mL (0.32-4.0)
== END 2023-03-09 11:26 | disposition home or self-care (01) ==
LOC: HO.10HDL 11:25
PROVIDERS: Visit Provider Internal Medicine
DX: I10 Essential (primary) hypertension (principal); E03.9 Hypothyroidism, unspecified
CPT/HCPCS: 36415; 80053; 84439; 84443; 85025

== ENCOUNTER 2023-05-10 11:42 | Emergency (ER) | payer OTHER, SELFPAY ==
--- NOTE | ~2023-05-10 | XR_ITS ---
EXAMINATION: XR CHEST CLINICAL INFORMATION: Lung pain. COMPARISON: 09/11/2020 TECHNIQUE: 2 views of the chest were obtained. FINDINGS: The lungs are moderately expanded. No focal consolidation. No pleural effusion. Cardiac silhouette is unchanged. XR/XR chest 2V IMPRESSION: No acute abnormality.
--- NOTE | 2023-05-10 12:24 | ED.GENADULT ---
HPI - General Adult General Chief complaint: General Medical Stated complaint: Swollen glands, pain in lungs Time Seen by Provider: 05/10/23 12:44 Source: patient Mode of arrival: ambulatory Limitations: no limitations History of Present Illness HPI narrative: 68 year old female hx of recurrent OM, HTN presents w/faituge, malaise, cough and lung pain X 2 months not improving.Patient reports cough worse at night. Reports that noone is sick around her. She was seen by her pcp who recommended supportive measure, however still not improving. Denies CP,sob,n/v/d, headache, vision changes, dizziness, weaknes Related Data Home Medications Medication Instructions Recorded Confirmed atenolol 50 mg tablet 50 mg PO DAILY 12/22/21 hydrochlorothiazide 25 mg tablet 25 mg PO DAILY 12/22/21 Previous Rx's Medication Instructions Recorded ciprofloxacin 0.3 %-dexamethasone 4 drp otic (ears) BID 7 days #7.5 11/03/21 0.1 % ear drops,suspension mL (Ciprodex) celecoxib 200 mg capsule (Celebrex) 200 mg PO BID 30 days #60 caps 05/29/22 albuterol sulfate 90 mcg/actuation 2 inh inhalation Q4-6H PRN 05/10/23 breath activated powder inhaler shortness of breath or wheezing #1 ea benzonatate 100 mg capsule 100 mg PO BID PRN cough #20 caps 05/10/23 doxycycline hyclate 100 mg capsule 100 mg PO BID 10 days #20 caps 05/10/23 prednisone 20 mg tablet 40 mg (2 x 20 mg) PO DAILY 5 days 05/10/23 #10 tabs Allergies Allergy/AdvReac Type Severity Reaction Status Date / Time No Known Allergies Allergy Verified 05/10/23 12:26 [No Known Allergies*] Review of Systems Review of Systems: Yes all other systems are reviewed and are negative PMFSH Past Medical History Attestation statement: The following information was validated with the patient. Source: old records reviewed and nursing notes reviewed Medical History Carpal tunnel syndrome Asthma Hypertension Surgical History History of ear surgery S/P thyroid surgery Social History Social History Alcohol intake: never Patient Tobacco Use Status: Never used Tobacco Advance Directives: No Advance Directives Information Provided: No Current occupational status: unemployed Current occupation: left handed Physical Exam ED Vital Signs: Vital Signs - 24 hr 05/10/23 12:26 05/10/23 13:36 Temperature 98 F 98.2 F Pulse Rate 75 70 Respiratory Rate 16 16 Blood Pressure 168/109 H 175/85 H Pulse Oximetry 96 96 Oxygen Delivery Method Room Air Room Air BMI result Body Mass Index 30.2 vss Appearance: Alert.? Oriented X3.? No acute distress.? Head: Normocephalic, atraumatic, no step-offs or deformities Eyes: Pupils equal, round and reactive to light.? Neck: Normal inspection.? Neck supple.? CVS: Normal heart rate and rhythm.? Pulses normal.? Respiratory: No respiratory distress.? Breath sounds normal.? Abdomen: Soft and nontender.? Skin: Skin warm and dry.? Normal skin color.? Normal skin turgor.? Extremities: No lower extremity edema.? No calf ttp. 5/5 strength to bilateral upper and lower extremities Neuro: Oriented X 3.? No motor deficit.? No sensory deficit. CN 2-12 intact Course Course Course Narrative: This is a rapid medical exam: Additional HPI, ROS, PE not included below will be deferred to primary provider. Patient is a 68-year-old female with history of asthma, HTN presenting to the ED with complaint of lung pain for months. States she saw PCP last week for swollen glands and was told it was my lungs. Reports intermittent bilateral posterior lung pain. Denies fevers. Plan: viral swabs, cxr Reevaluation(s) Reevaluation #1: viral test and xray pending. 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 Will discharge patient as results will not affect disposition. Will call her if any of the results are positive. Educated patient on diagnosis and treatment plan, answered all question, patient verbalizes understanding. At this time patient will be discharged home, advised to return with new or worsening symptoms. Educated on worrisome signs and symptoms and when to return. At this time I feel comfortable discharge home. Time: 13:43 Reevaluation #3: Forgot to document on it physical exam portion patient does have bilateral supraclavicular lymphadenopathy, I did advise her to follow-up with PCP if these do not resolve, this could be malignancy. Patient's PCP supposedly aware and is following this. Per patient. Time: 13:51 Medical Decision Making Medical Decision Making [facility] Narrative: 1252 68 year old presents w/ cough and pain in lungs X 2 months PE benign Concerns for bronchitis versus viral illness. Unlikely pneumonia, PE, ACS, dissection, acute respiratory distress. Plan viral testing Differential Diagnosis Differential Diagnoses: The differential diagnosis associated with the presentation includes Concerns for bronchitis versus viral illness. Unlikely pneumonia, PE, ACS, dissection, acute respiratory distress. Admission/Observation Consideration of admission/observation: Escalation of care including admission/observation considered Lab Data [facility] Lab Attestation statement: I reviewed the patient's lab results. Labs: Lab Results 05/10/23 Range/Units 12:40 Influenza Type A (PCR) NEGATIVE (Negative) Influenza Type B (PCR) NEGATIVE (Negative) RSV RNA Qual (PCR) NEGATIVE (Negative) SARS-CoV-2 RNA (RT-PCR) NEGATIVE (Negative) Independent Interpretation I performed an independent interpretation of an: Plain X-Ray Radiology Impression Discussion of test interpretation with radiology: I have reviewed the radiologist's reading. Chronic Conditions Patient?s care impacted by: Hypertension and Other (Recurrent ear infections ) Discharge Plan Discharge Clinical Impression: Bronchitis Patient Disposition: Home, Self-Care Instructions: Acute Bronchitis (ED) Additional Instructions: Take your medications as prescribed. If you were prescribed antibiotics today, it is important that you take your medication to their entirety, do not skip any doses, do not finish them early. Follow-up with your primary care provider this week. Return to the emergency department with new or worsening symptoms. Such as fevers, chills, chest pain, shortness of breath, nausea, vomiting, dizziness, headache, vision changes, lethargy In case of emergency call 911 Prescriptions: New doxycycline hyclate 100 mg capsule 100 mg PO BID 10 Days Qty: 20 0RF benzonatate 100 mg capsule 100 mg PO BID PRN (Reason: cough) Qty: 20 0RF prednisone 20 mg tablet 40 mg PO DAILY 5 Days Qty: 10 0RF albuterol sulfate 90 mcg/actuation aerosol powdr breath activated 2 inh inhalation Q4-6H PRN (Reason: shortness of breath or wheezing) Qty: 1 0RF No Action ciprofloxacin-dexamethasone [Ciprodex] 0.3-0.1 % drops,suspension 4 drp otic (ears) BID 7 Days Qty: 7.5 0RF hydrochlorothiazide 25 mg tablet 25 mg PO DAILY atenolol 50 mg tablet 50 mg PO DAILY celecoxib [Celebrex] 200 mg capsule 200 mg PO BID 30 Days Qty: 60 3RF Referrals: Yomi Tamez MD [Primary Care Provider] - 2 days Interventions: ED Discharge Assessment Last Done: 05/10/23 13:38 Discharge Date/Time: 05/10/23 13:42
[2023-05-10 12:26] VITALS: BP 168/109; PULSE 75; RESP 16; TEMP 36.6; O2SAT 96; BMI 30.2
[2023-05-10 13:36] VITALS: BP 175/85; PULSE 70; RESP 16; TEMP 36.8; O2SAT 96
[2023-05-10 13:44] LABS: Influenza A PCR NEGATIVE (Negative); Influenza B PCR NEGATIVE (Negative); Resp Syncy Virus RNA Qual PCR NEGATIVE (Negative); SARS COV2 PCR INHOUSE NEGATIVE (Negative)
== END 2023-05-10 13:42 | disposition home or self-care (01) ==
PROVIDERS: Registered Nurse Emergency; Emergency Provider Emergency Medicine; PCP Internal Medicine
DX: J40 Bronchitis, not specified as acute or chronic (principal); R05.9 Cough, unspecified; R07.1 Chest pain on breathing; R53.83 Other fatigue; I10 Essential (primary) hypertension; Z11.52 Encounter for screening for COVID-19; Z20.822 Contact with and (suspected) exposure to COVID-19
CPT/HCPCS: 0241U; 71046; 99283

== ENCOUNTER 2023-05-23 13:27 | Outpatient (AMB) | payer OTHER, SELFPAY ==
--- NOTE | 2023-05-23 13:14 | MHC.OFFVIS ---
Intake Vital Signs 05/23/23 13:29 Height 5 ft 4 in Weight 175 lb BMI 30.0 BP 140/80 H Blood Pressure Location Rt brachial Position Sitting Pulse 64 Pulse Source Pulse Oximeter Pulse Oximetry (%) 98 Oxygen Delivery Method Room Air Intake Visit Reasons: Upper Resp Infection Lens Coating Technician Required: No Diversity Specialist: Diversity Specialist offered & declined Accompanied by: Self / Same As Patient Allergies No Known Allergies [No Known Allergies*] Allergy (Verified 05/23/23 13:33) Medication List - Last Reconciled 05/23/23 by Kathleen Gupta LPN albuterol sulfate 90 mcg/actuation 2 inhalations inhalation Q4-6H PRN atenolol 50 mg PO DAILY benzonatate 100 mg PO BID PRN celecoxib (Celebrex) 200 mg PO BID 30 days ciprofloxacin-dexamethasone 0.3-0.1 % (Ciprodex) 4 drps otic (ears) BID 7 days hydrochlorothiazide 25 mg PO DAILY HPI Upper Resp Infection HPI Details Kathleen is a pleasant 68-year-old female, never tobacco smoker everyday marijuana smoker, with underlying hypertension and asthma. She was referred by PCP for pulmonary evaluation. She reported fatigue, nonproductive cough, chest tightness and lung pain that developed two months ago. She was evaluated by PCP and instructed to continue supportive care. Symptoms persisted and was evaluated in [facility] on , diagnosed with bronchitis and treated with doxycycline, prednisone, benzonatate and albuterol. CXR unremarkable and respiratory panel negative. She denies any relief from medication and has used albuterol infrequently. She does report dyspnea, chest tightness and decrease in exercise capacity that has progressively worsening over the last 6 months. Occasionally with dry cough. Denies wheezing. Denies orthopnea, chest pain or BLE. 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 She reports multiple family members with asthma and allergies, as well as a mother, smoker, with COPD and lung cancer. She reports seasonal allergies with chronic sinusitis and frequent ear infections. She denies recent allergy testing. She does have a cat, dog and recently had multiple parakeets >5 years. [facility] Medical History (Updated 05/23/23 @ 14:09 by Tania Loredo NP) Carpal tunnel syndrome Asthma Hypertension Surgical History History of ear surgery S/P thyroid surgery Social History (Updated 05/23/23 @ 13:38 by Kathleen Gupta LPN) Alcohol intake: never Patient Tobacco Use Status: Never used Tobacco Substance Use Type: Marijuana Current occupational status: unemployed Current occupation: left handed Review of Systems Const Denies chills, Denies excessive sweating, Denies fever(s), Denies headache(s) and Denies night sweats Eyes Denies dry eyes, Denies irritation and Denies itchy eyes ENT Reports Normal hearing present, Denies headache(s), Denies nasal congestion, Denies nasal discharge, Denies post nasal drip and Denies sore throat Card Denies chest pain, Denies chest pain at rest, Denies chest pain with activity, Denies claudication, Denies leg edema, Reports dyspnea on exertion and Denies orthopnea Resp Denies chest congestion, Reports cough, Denies excessive phlegm production, Denies pain on inspiration, Denies pain with cough, Reports dyspnea on exertion, Denies stridor and Denies wheezing Musc Denies myalgias Neuro Reports Normal hearing present and Denies headache(s) Endo Denies excessive sweating Yogi/Lymph Denies lymphadenopathy Aller/Immun Denies itchy eyes, Denies seasonal rhinorrhea and Denies wheezing Physical Exam Vital Signs: Last Vital Signs Pulse 64 05/23/23 13:29 BP 140/80 H 05/23/23 13:29 Pulse Ox 98 05/23/23 13:29 Oxygen Delivery Method Room Air 05/23/23 13:29 BMI result Body Mass Index 30.0 Const General: cooperative, healthy appearing, comfortable, no acute distress, well developed and alert Nutritional Appearance: obese Orientation/consciousness: patient oriented x3 Limitations: no limitations HEENT Head: Yes normal to inspection, Yes normocephalic and Yes atraumatic Ears: hearing grossly normal bilaterally and external ears normal Eyes General: appearance normal, both eyes and all related structures Eyelids: Yes eyelids normal Sclerae: sclerae normal EOM: EOMs intact bilaterally Neck Neck: Yes normal visual inspection and Yes no lymphadenopathy Lymphatic: no lymphadenopathy noted Chest Chest palpation & inspection: normal inspection of the chest Resp Effort & Inspection: normal respiratory effort, able to speak in complete sentences, no audible wheezes, no cough, no stridor, not tachypneic, no tripod positioning and no use of accessory muscles Auscultation: clear to auscultation bilaterally Cardio Jugular venous distension: no JVD Rate: regular rate Rhythm: regular rhythm Skin Other: warm, dry General skin exam: no rashes or lesions noted Neuro General: patient oriented x3 Cranial nerves: Yes Normal hearing present Cognition (Neuro): normal cognition Gait exam (Neuro): Normal gait present Extrem General: Yes normal to inspection, Yes capillary refill normal, Yes no clubbing, cyanosis or edema and Yes no pedal edema Psych Appearance: grossly normal and well kempt Speech and movement: Normal speech and movement present and Clear speech present Affect: normal affect Attitude: cooperative Thought process: Normal thought process present Thought content: Normal thought content present Insight: Good insight present (Psych) Judgement: Good judgement present (Psych) Results Reviewed Results Reviewed: [address] [address] XRay Report Signed Patient: Kathleen Antoine MR#: [id number] : 1955 Acct:[id number] Age/Sex: 68 / F ADM Date: 05/10/23 Loc: .ED Attending Dr: Ordering Physician: Nataly Beltran NP Date of Service: 05/10/23 Procedure(s): XR chest 2V Accession Number(s): [id number] cc: Yomi Tamez MD; Nataly Beltran NP~ EXAMINATION: XR CHEST CLINICAL INFORMATION: Lung pain. COMPARISON: 09/11/2020 TECHNIQUE: 2 views of the chest were obtained. FINDINGS: The lungs are moderately expanded. No focal consolidation. No pleural effusion. Cardiac silhouette is unchanged. XR/XR chest 2V IMPRESSION: No acute abnormality. 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 Will send for PFT and RAST to evaluate. Recent CXR unremarkable and patient with worsening dyspnea x 6 months. Will send for chest CT to assess for any parenchymal condition contributing to dyspnea, such as ILD, as she did have repeated occupational exposures as well as multiple pets, including birds. All questions were answered and patient is in agreement of plan. Will follow up to review results. Orders: Orders Immunoglobulin E Today Z91.09 - Other allergy status, other than to drugs and biological substances Resp Allergy Profile Region I Today Z91.09 - Other allergy status, other than to drugs and biological substances Complete Blood Count Auto Diff Today R06.00 - Dyspnea, unspecified PFT pulmonary function test Today J45.909 - Unspecified asthma, uncomplicated CT chest wo IV con Today R06.00 - Dyspnea, unspecified Coding Level of Care Code New Pt Level 4 (33232) Diagnoses Asthma J45.909 Environmental allergies Z91.09 Dyspnea R06.00
[2023-05-23 13:29] VITALS: BP 140/80; PULSE 64; O2SAT 98
== END 2023-05-23 14:20 | disposition home or self-care (01) ==
PROVIDERS: PCP Internal Medicine; Visit Provider Nurse Practitioner Family
DX: J45.909 Unspecified asthma, uncomplicated (principal); Z91.09 Other allergy status, other than to drugs and biological substances; R06.00 Dyspnea, unspecified
CPT/HCPCS: 99204

== ENCOUNTER → 2023-05-23 13:27 | Outpatient (BNVA) | payer OTHER, SELFPAY | PROVIDERS: PCP Internal Medicine; Visit Provider Nurse Practitioner Family | DX: J45.909 Unspecified asthma, uncomplicated (principal); Z91.09 Other allergy status, other than to drugs and biological substances; R06.00 Dyspnea, unspecified | CPT/HCPCS: 99202 ==

== ENCOUNTER 2023-06-06 10:46 | Outpatient (REF) | payer OTHER, SELFPAY ==
[2023-06-06 09:31] VITALS: PULSE 86; RESP 16; O2SAT 98
--- NOTE | 2023-06-06 11:00 | PFT_ITS ---
Flows: FEV1: 93 % of predicted at 2.14 L FVC: 94 % of predicted at 2.77 L FEV1/FVC: 77 % Bronchodilator response: Absent Volumes: Patient unable to perform lung volume or diffusion capacity maneuvers. Impression: Patient unable to perform the test according to ats standards. Best effort used for spirometry. Spirometry is normal with no bronchodilator response. Patient unable to perform lung volume or diffusion capacity maneuvers. MTDD
[2023-06-06 11:46] LABS: MANUAL DIFF FLAG NO
[2023-06-06 12:14] LABS: Basophils Percent Auto 0.4 % (0-2); Eosinophils Absolute Auto 0.1 X10*3/uL (0.0-0.4); Eosinophils Percent Auto 1.9 % (0-4); Hematocrit 42.9 % (37.0-47.0); Hemoglobin 14.8 g/dl (12.0-16.0); Imm Gran Abs Auto 0.01 X10*3/uL (0.00-0.03); Imm Gran Pct Auto 0.1 % (0.0-0.4); Lymphocytes Absolute Auto 4.4 X10*3/uL (1.2-4.9); Lymphocytes Percent Auto 59.5 % (20-40); Mean Corpuscular HGB Conc 34.5 g/dl (31.0-35.0); Mean Corpuscular Hemoglobin 31.5 pg (27.0-33.0); Mean Corpuscular Volume 91.3 fL (80.0-98.0); Mean Platelet Volume 9.2 fL (9.4-12.3); Monocytes Absolute Auto 0.8 X10*3/uL (0.1-1.2); Monocytes Percent Auto 11.3 % (2-11); Neutrophils Percent Auto 26.8 % (45-73); Platelet Count 169 X10*3/uL (160-400); Red Cell Distribution Width 11.3 % (11.0-16.0); White Blood Count 7.4 X10*3/uL (4.8-10.8)
[2023-06-17 14:19] LABS: Class Alternaria alternata 0; Class Aspergillus fumigatus 0; Class Bermuda Grass 0; Class Birch 0; Class Cat Dander 0; Class Cladosporium herbarum 0; Class Cockroach 0; Class Common Ragweed 0; Class Cottonwood 0; Class Derm. pterony 0; Class Dermatophagoides farinae 0; Class Dog Dander 0; Class Elm 0; Class Maple Box Elder 0; Class Mountain Cedar 0; Class Mouse Urine Protein 0; Class Mugwort 0; Class Oak 0; Class Penicillium crysogenum 0; Class Rough Pigweed 0; Class Sheep Sorrel 0; Class Sycamore 0; Class Timothy Grass 0; Class Walnut Tree 0; Class White Ash 0; Class White Mulberry 0; D001 IgE D pteronyssinus <0.10 kU/L; D002 - IgE D farinae <0.10 kU/L; E001 - IgE Cat Dander <0.10 kU/L; E005 - IgE Dog Dander <0.10 kU/L; E072-IgE Mouse Urine <0.10 kU/L; G002 IgE Bermuda Grass <0.10 kU/L; G006 - IgE Timothy Grass <0.10 kU/L; I006-IgE Cockroach, German <0.10 kU/L; Immunoglobulin E 32 kU/L (<OR=114); M001 IgE Penicillium chrysogen <0.10 kU/L; M002 - IgE Cladosporium herbar <0.10 kU/L; M003 - IgE Aspergillus fumigat <0.10 kU/L; M006 - IgE Alternaria alternat <0.10 kU/L; T001 IgE Maple/Box Elder <0.10 kU/L; T003 IgE Common Silver Birch <0.10 kU/L; T006 - IgE Cedar, Mountain <0.10 kU/L; T007 - IgE Oak, White <0.10 kU/L; T008 IgE Elm, American <0.10 kU/L; T010 - IgE Walnut <0.10 kU/L; T011 - IgE Maple Leaf Sycamore <0.10 kU/L; T014 - IgE Cottonwood <0.10 kU/L; T015 - IgE Ash, White <0.10 kU/L; T070 - IgE White Mulberry <0.10 kU/L; W001 - IgE Ragweed, Short <0.10 kU/L; W006 - IgE Mugwort <0.10 kU/L; W014 IgE Pigweed, Common <0.10 kU/L; W018 IgE Sheep Sorrel <0.10 kU/L
== END 2023-06-06 10:47 | disposition home or self-care (01) ==
LOC: HO.RESP 10:46
PROVIDERS: PCP Internal Medicine; Visit Provider Nurse Practitioner Family
DX: J45.909 Unspecified asthma, uncomplicated (principal); R06.00 Dyspnea, unspecified; Z91.09 Other allergy status, other than to drugs and biological substances
CPT/HCPCS: 36415; 82785; 85025; 86003; 94010; 94640; 94727; 94729

== ENCOUNTER 2023-06-22 13:40 | Outpatient (REF) | payer OTHER, SELFPAY ==
--- NOTE | ~2023-06-22 | MM_ITS ---
EXAMINATION: MM SCREENING DIGITAL BREAST TOMOSYNTHESIS, BILATERAL CLINICAL INFORMATION: Screening. Asymptomatic. COMPARISON: Mammography: This study is compared with prior exams dating back to 2019. TECHNIQUE: Digital breast tomosynthesis is performed in both the craniocaudal and mediolateral oblique views along with computer-aided detection (CAD). Synthesized 2D images are generated from the tomosynthesis. FINDINGS: There are scattered areas of fibroglandular density (ACR BI-RADS breast composition Category b). There are no significant masses, abnormal calcifications, or other abnormalities. Few, bilateral benign calcifications are present. MM/MM tomosynthesis screening BI IMPRESSION: No mammographic evidence of malignancy. ASSESSMENT: BI-RADS BI-RADS 2 - Benign Findings RECOMMENDATION: Routine annual mammography screening. 1 year F/U This examination should not preclude the clinical evaluation of a suspicious palpable abnormality. This patient's information was entered into a reminder system with a target due date for their next mammogram.
== END 2023-06-22 13:41 | disposition home or self-care (01) ==
LOC: HO.MAMMO 13:40
PROVIDERS: PCP Internal Medicine; Visit Provider Internal Medicine
DX: Z12.31 Encounter for screening mammogram for malignant neoplasm of breast (principal)
CPT/HCPCS: 77063; 77067

== ENCOUNTER → 2023-06-22 14:00 | Outpatient (BNV) | payer OTHER, SELFPAY | PROVIDERS: PCP Internal Medicine; Visit Provider Radiology Diagnostic Radiology | DX: Z12.31 Encounter for screening mammogram for malignant neoplasm of breast (principal) | CPT/HCPCS: 77063; 77067 ==

== ENCOUNTER 2023-07-13 13:45 | Outpatient (REF) | payer OTHER, SELFPAY ==
--- NOTE | ~2023-07-13 | CT_ITS ---
EXAMINATION: CT CHEST WITHOUT CONTRAST CLINICAL INFORMATION: Dyspnea. COMPARISON: Chest radiographs dated 05/10/2023. TECHNIQUE: Multidetector volumetric CT imaging of the chest was done. Axial MIP volume rendering provided. Sagittal and coronal reformatted images were obtained. This CT examination was performed using dose optimization techniques as appropriate, variously including the following: *Automated exposure control *Adjustment of mA and/or kV according to patient size (this includes techniques or standardized protocols for targeted exams where dose is matched to indication/reason for exam; i.e. 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 There is mild elevation of the right hemidiaphragm. LUNGS: Within the posterior segment of the right upper lobe laterally (7:109), a dominant 4 mm, noncalcified nodule is seen. Also within the posterior segment of the right upper lobe (7:181), a 3 mm noncalcified nodule is seen. Within the anterior segment of the right upper lobe (7:185), a benign, calcified granuloma is seen. Within the posterior basal segment of the right lower lobe (7:240 and 355), there are 3 mm noncalcified nodules. At the right lateral costophrenic angle (7:365), a 4 mm noncalcified nodule is seen. There are a few further scattered 1-2 mm noncalcified right lung nodules, best appreciated on the MIP sequence. Within the lingula (7:319), a 3 mm noncalcified nodule is seen. Within the posterior basal segment of the left lower lobe (7:350), a 4 mm noncalcified nodule is seen. There are a few further scattered 1-2 mm noncalcified and calcified left lung nodules, particularly well appreciated on the MIP sequence. There is a small focus of pleural and parenchymal scarring within the right upper lobe, the right middle lobe and the lingula, without associated focal airway obstruction. No mass, infiltrate or groundglass opacity is seen. There is no generalized increase in peripheral interlobular septal markings. No bleb or bullous formation is seen. The central airways appear patent. MEDIASTINUM: The right thyroid lobe is poorly visualized and may be surgically absent. Please correlate with the patient's past surgical history. There is no thoracic aortic aneurysm. There is mild atherosclerotic calcification of the thoracic aorta. No sizable mediastinal or hilar lymphadenopathy is seen. CORONARY ARTERY CALCIFICATION: None visualized on this study. PLEURA: There is no pleural effusion. No pleural mass or thickening. AXILLA: No lymphadenopathy. UPPER ABDOMEN: There is diffuse hepatic steatosis. A large gallstone is partially included in the [id number]. OSSEOUS STRUCTURES: There is multi-level marked thoracic spondylosis. No acute or aggressive osseous finding is noted. CT/CT chest wo IV con IMPRESSION: 1. There are multiple bilateral noncalcified, nonspecific and calcified pulmonary nodules, the largest noncalcified nodules measuring 4 mm. According to the UPDATED 2017 Fleischner Society recommendations, the advised follow-up imaging for solid nodules < 6 mm is: LOW RISK PATIENT: No routine follow-up. HIGH RISK PATIENT: Optional CT at 12 months. 2. There are bilateral scattered foci of linear scar/subsegmental atelectasis, without associated focal airway obstruction. 3. No thoracic lymphadenopathy or pleural effusion is seen. 4. There is multi-level marked thoracic spondylosis. No acute or aggressive osseous finding is noted. 5. There is diffuse hepatic steatosis. 6. There is cholelithiasis. Fleischner guidelines were followed.
== END 2023-07-13 13:46 | disposition home or self-care (01) ==
LOC: HO.CT 13:45
PROVIDERS: PCP Internal Medicine; Visit Provider Nurse Practitioner Family
DX: R06.00 Dyspnea, unspecified (principal)
CPT/HCPCS: 71250

== ENCOUNTER 2023-07-17 11:35 | Outpatient (REF) | payer OTHER, SELFPAY ==
[2023-07-17 13:27] LABS: MANUAL DIFF FLAG NO
[2023-07-17 13:39] LABS: Basophils Percent Auto 0.4 % (0-2); Eosinophils Absolute Auto 0.1 X10*3/uL (0.0-0.4); Eosinophils Percent Auto 1.6 % (0-4); Hematocrit 41.4 % (37.0-47.0); Hemoglobin 14.4 g/dl (12.0-16.0); Imm Gran Abs Auto 0.01 X10*3/uL (0.00-0.03); Imm Gran Pct Auto 0.1 % (0.0-0.4); Lymphocytes Percent Auto 44.1 % (20-40); Mean Corpuscular HGB Conc 34.8 g/dl (31.0-35.0); Mean Corpuscular Hemoglobin 32.1 pg (27.0-33.0); Mean Corpuscular Volume 92.2 fL (80.0-98.0); Mean Platelet Volume 10.2 fL (9.4-12.3); Monocytes Absolute Auto 0.7 X10*3/uL (0.1-1.2); Monocytes Percent Auto 10.3 % (2-11); Neutrophils Absolute Auto 2.9 x10*3/uL (2.0-8.3); Neutrophils Percent Auto 43.5 % (45-73); Platelet Count 186 X10*3/uL (160-400); Red Blood Count 4.49 X10*6/uL (4.20-5.50); Red Cell Distribution Width 11.9 % (11.0-16.0); White Blood Count 6.8 X10*3/uL (4.8-10.8)
[2023-07-17 14:07] LABS: Alanine Aminotransferase 30 U/L (0-31); Albumin Level 4.4 g/dL (3.5-5.0); Alkaline Phosphatase 67 U/L (39-117); Anion Gap 14 (12-20); Aspartate Amino Transferase 26 U/L (5-31); Bilirubin Total 0.8 mg/dL (0.0-1.0); Blood Urea Nitrogen 13 mg/dL (9-16); Calcium 10.3 mg/dL (8.4-10.2); Carbon Dioxide 29 mmol/L (22-29); Chloride 104 mmol/L (96-108); Estimated Glomerular Filt Rate > 60; Glucose Random 108 mg/dL (60-115); Potassium 3.5 mmol/L (3.3-5.1); Sodium 143 mmol/L (135-145); Thyroid Stimulating Hormone 2.26 uIU/mL (0.32-4.0); Total Protein 7.3 g/dL (6.5-8.0)
== END 2023-07-17 11:36 | disposition home or self-care (01) ==
LOC: HO.10HDL 11:35
PROVIDERS: Visit Provider Internal Medicine
DX: I12.9 Hypertensive chronic kidney disease with stage 1 through stage 4 chronic kidney disease, or unspecified chronic kidney disease (principal); N18.9 Chronic kidney disease, unspecified; E03.9 Hypothyroidism, unspecified
CPT/HCPCS: 36415; 80053; 84439; 84443; 85025

== ENCOUNTER 2023-07-25 13:11 | Outpatient (AMB) | payer OTHER, SELFPAY ==
--- NOTE | 2023-07-25 13:20 | MHC.OFFVIS ---
Vital Signs 07/25/23 13:21 Height 5 ft 4 in Weight 171 lb BMI 29.3 BP 136/92 H Blood Pressure Location Rt brachial Position Sitting Pulse 69 Pulse Source Pulse Oximeter Pulse Oximetry (%) 98 Oxygen Delivery Method Room Air Intake Visit Reasons: upper resp infection: 8 week f/u Allergies No Known Allergies [No Known Allergies*] Allergy (Verified 07/25/23 13:23) HPI HPI upper resp infection: 8 week f/u: Details: Kathleen is a pleasant 68-year-old female, never tobacco smoker everyday marijuana smoker, with underlying hypertension and asthma. She continues to report dyspnea on exertion as well as intermittent dry cough. She has been using albuterol more frequently with good relief and is interested in starting a daily inhaler. She also reports symptoms suggestive of obstructive sleep apnea with paroxsymal nocturnal dyspnea, loud snoring and daytime fatigue. She also reports difficulty with blood pressure control. She is interested in a home sleep study. Today she presents to review PFT, RAST and chest CT. [facility] Medical History (Updated 07/27/23 @ 08:09 by Tania Loredo NP) Carpal tunnel syndrome Asthma Hypertension Surgical History History of ear surgery S/P thyroid surgery Social History Alcohol intake: never Patient Tobacco Use Status: Never used Tobacco Substance Use Type: Marijuana Current occupational status: unemployed Current occupation: left handed Review of Systems Const Denies chills, Denies excessive sweating, Denies fever(s), Denies headache(s) and Denies night sweats Eyes Denies dry eyes, Denies irritation and Denies itchy eyes ENT Reports Normal hearing present, Denies headache(s), Denies nasal congestion, Denies nasal discharge, Denies post nasal drip and Denies sore throat Card Denies chest pain, Denies chest pain at rest, Denies chest pain with activity, Denies claudication, Denies leg edema, Reports dyspnea on exertion and Denies orthopnea Resp Denies chest congestion, Denies excessive phlegm production, Denies pain on inspiration, Denies pain with cough, Reports dyspnea on exertion, Denies stridor and Denies wheezing Musc Denies myalgias Neuro Reports Normal hearing present and Denies headache(s) Endo Denies excessive sweating Yogi/Lymph Denies lymphadenopathy Aller/Immun Denies itchy eyes, Denies seasonal rhinorrhea and Denies wheezing Physical Exam Vital Signs: Last Vital Signs Pulse 69 07/25/23 13:21 BP 136/92 H 07/25/23 13:21 Pulse Ox 98 07/25/23 13:21 Oxygen Delivery Method Room Air 07/25/23 13:21 BMI result Body Mass Index 29.3 Const General: cooperative, healthy appearing, comfortable, no acute distress, well developed and alert Nutritional Appearance: obese Orientation/consciousness: patient oriented x3 Limitations: no limitations HEENT Head: Yes normal to inspection, Yes normocephalic and Yes atraumatic Ears: hearing grossly normal bilaterally and external ears normal Eyes General: appearance normal, both eyes and all related structures Eyelids: Yes eyelids normal Sclerae: sclerae normal EOM: EOMs intact bilaterally Neck Neck: Yes normal visual inspection and Yes no lymphadenopathy Lymphatic: no lymphadenopathy noted Chest Chest palpation & inspection: normal inspection of the chest Resp Effort & Inspection: normal respiratory effort, able to speak in complete sentences, no audible wheezes, no cough, no stridor, not tachypneic, no tripod positioning and no use of accessory muscles Auscultation: clear to auscultation bilaterally Cardio Jugular venous distension: no JVD Rate: regular rate Rhythm: regular rhythm Skin Other: warm, dry General skin exam: no rashes or lesions noted Neuro General: patient oriented x3 Cranial nerves: Yes Normal hearing present Cognition (Neuro): normal cognition Gait exam (Neuro): Normal gait present Extrem General: Yes normal to inspection, Yes capillary refill normal, Yes no clubbing, cyanosis or edema and Yes no pedal edema Psych Appearance: grossly normal and well kempt Speech and movement: Normal speech and movement present and Clear speech present Affect: normal affect Attitude: cooperative Thought process: Normal thought process present Thought content: Normal thought content present Insight: Good insight present (Psych) Judgement: Good judgement present (Psych) Results Reviewed Results Reviewed: [address] [address] [address] Scan Report Signed Patient: Kathleen Antoine MR#: [id number] : 1955 Acct:[id number] Age/Sex: 68 / F ADM Date: 07/13/23 Loc: HO.CT Attending Dr: Tania Loredo NP Ordering Physician: Tania Loredo NP Date of Service: 07/13/23 Procedure(s): CT chest wo IV con Accession Number(s): [id number] cc: Yomi Tamez MD; Tania Loredo NP~ EXAMINATION: CT CHEST WITHOUT CONTRAST CLINICAL INFORMATION: Dyspnea. COMPARISON: Chest radiographs dated 05/10/2023. TECHNIQUE: Multidetector volumetric CT imaging of the chest was done. Axial MIP volume rendering provided. Sagittal and coronal reformatted images were obtained. This CT examination was performed using dose optimization techniques as appropriate, variously including the following: *Automated exposure control *Adjustment of mA and/or kV according to patient size (this includes techniques or standardized protocols for targeted exams where dose is matched to indication/reason for exam; i.e. 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 There is mild elevation of the right hemidiaphragm. LUNGS: Within the posterior segment of the right upper lobe laterally (7:109), a dominant 4 mm, noncalcified nodule is seen. Also within the posterior segment of the right upper lobe (7:181), a 3 mm noncalcified nodule is seen. Within the anterior segment of the right upper lobe (7:185), a benign, calcified granuloma is seen. Within the posterior basal segment of the right lower lobe (7:240 and 355), there are 3 mm noncalcified nodules. At the right lateral costophrenic angle (7:365), a 4 mm noncalcified nodule is seen. There are a few further scattered 1-2 mm noncalcified right lung nodules, best appreciated on the MIP sequence. Within the lingula (7:319), a 3 mm noncalcified nodule is seen. Within the posterior basal segment of the left lower lobe (7:350), a 4 mm noncalcified nodule is seen. There are a few further scattered 1-2 mm noncalcified and calcified left lung nodules, particularly well appreciated on the MIP sequence. There is a small focus of pleural and parenchymal scarring within the right upper lobe, the right middle lobe and the lingula, without associated focal airway obstruction. No mass, infiltrate or groundglass opacity is seen. There is no generalized increase in peripheral interlobular septal markings. No bleb or bullous formation is seen. The central airways appear patent. MEDIASTINUM: The right thyroid lobe is poorly visualized and may be surgically absent. Please correlate with the patient's past surgical history. There is no thoracic aortic aneurysm. There is mild atherosclerotic calcification of the thoracic aorta. No sizable mediastinal or hilar lymphadenopathy is seen. CORONARY ARTERY CALCIFICATION: None visualized on this study. PLEURA: There is no pleural effusion. No pleural mass or thickening. AXILLA: No lymphadenopathy. UPPER ABDOMEN: There is diffuse hepatic steatosis. A large gallstone is partially included in the [id number]. OSSEOUS STRUCTURES: There is multi-level marked thoracic spondylosis. No acute or aggressive osseous finding is noted. CT/CT chest wo IV con IMPRESSION: 1. There are multiple bilateral noncalcified, nonspecific and calcified pulmonary nodules, the largest noncalcified nodules measuring 4 mm. According to the UPDATED 2017 Fleischner Society recommendations, the advised follow-up imaging for solid nodules < 6 mm is: LOW RISK PATIENT: No routine follow-up. HIGH RISK PATIENT: Optional CT at 12 months. 2. There are bilateral scattered foci of linear scar/subsegmental atelectasis, without associated focal airway obstruction. 3. No thoracic lymphadenopathy or pleural effusion is seen. 4. There is multi-level marked thoracic spondylosis. No acute or aggressive osseous finding is noted. 5. There is diffuse hepatic steatosis. 6. There is cholelithiasis. Fleischner guidelines were followed. Dictated By: Andry Carrero MD Signed By: <Electronically signed by Andry Carrero MD in OV> 07/23/23 1026 DD/ 1410 TD/TT: Business Technology Professor: SUSAN Assessment & Plan Assessment & Plan (1) Asthma: Code(s): J45.909 - Unspecified asthma, uncomplicated Category: Medical (2) Dyspnea: Code(s): R06.00 - Dyspnea, unspecified Category: Medical (3) Multiple pulmonary nodules: Code(s): R91.8 - Other nonspecific abnormal finding of lung field Category: Medical (4) Daytime somnolence: Code(s): R40.0 - Somnolence Category: Medical Plan Kathleen continues to report dyspnea on exertion and intermittent dry cough that is somewhat relieved with albuterol. Will send in Symbicort to trial. Reviewed importance of inhaler technique and good oral hygiene. If no changes to dyspnea with Symbicort will consider sending for an echo. At this time patient denies orthopnea or bilateral lower extremity edema. She does report paroxsymal nocturnal dyspnea as well as daytime somnolence for which we will send for a home sleep study to evaluate. We reviewed her PFT but patient was unable to perform the test according to ats standards. Spirometry is normal with no bronchodilator response. She was unable to perform lung volumes or diffusion capacity maneuvers. RAST testing negative.Chest CT revealed multiple bilateral pulmonary nodules, the largest noncalcified nodules measuring 4 mm. Also noted was bilateral scattered foci of linear scar/subsegmental atelectasis, without associated focal airway obstruction. There is also note of cholelithiasis which she will discuss with her PCP. Will scan will repeat chest CT to assess stability of pulmonary nodules in 1 year. All questions were answered and patient is in agreement of plan. Will follow-up in 8-10 weeks to assess effectiveness of Symbicort and review sleep study results. Orders: Orders RT home sleep study Today R40.0 - Somnolence CT chest wo IV con 11 Months R91.8 - Other nonspecific abnormal finding of lung field Medications: New budesonide-formoterol 80-4.5 mcg/actuation (Symbicort) 2 puffs inhalation Q12H 10.2 grams 3RF Coding Level of Care Code Est Pt Level 4 (38918) Diagnoses Asthma J45.909 Dyspnea R06.00 Multiple pulmonary nodules R91.8 Daytime somnolence R40.0
[2023-07-25 13:21] VITALS: BP 136/92; PULSE 69; O2SAT 98; BMI 29.3
== END 2023-07-25 13:51 | disposition home or self-care (01) ==
PROVIDERS: PCP Internal Medicine; Visit Provider Nurse Practitioner Family
DX: J45.909 Unspecified asthma, uncomplicated (principal); R06.00 Dyspnea, unspecified; R91.8 Other nonspecific abnormal finding of lung field; R40.0 Somnolence
CPT/HCPCS: 99214

== ENCOUNTER → 2023-07-25 13:11 | Outpatient (BNVA) | payer OTHER, SELFPAY | PROVIDERS: PCP Internal Medicine; Visit Provider Nurse Practitioner Family | DX: J45.909 Unspecified asthma, uncomplicated (principal); R06.00 Dyspnea, unspecified; R91.8 Other nonspecific abnormal finding of lung field; R40.0 Somnolence | CPT/HCPCS: 99212 ==

== ENCOUNTER → 2023-11-22 09:42 | Outpatient (REF) | payer OTHER, SELFPAY | LOC: HO.SL 09:42 | PROVIDERS: PCP Internal Medicine; Visit Provider Nurse Practitioner Family | DX: R40.0 Somnolence (principal); G47.33 Obstructive sleep apnea (adult) (pediatric) | CPT/HCPCS: 95806 ==

== ENCOUNTER → 2023-11-22 10:00 | Outpatient (BNV) | payer OTHER, SELFPAY | PROVIDERS: PCP Internal Medicine; Visit Provider Internal Medicine | DX: G47.33 Obstructive sleep apnea (adult) (pediatric) (principal) | CPT/HCPCS: 95806 ==

== ENCOUNTER 2023-12-21 10:04 | Outpatient (AMB) | payer OTHER, SELFPAY ==
[2023-12-21 10:09] VITALS: BP 158/90; PULSE 73; O2SAT 98; BMI 29.9
--- NOTE | 2023-12-21 10:09 | MHC.OFFVIS ---
Vital Signs 12/21/23 10:09 Height 5 ft 4 in Weight 174 lb 8 oz BMI 29.9 BP 158/90 H Blood Pressure Location Rt brachial Position Sitting Pulse 73 Pulse Source Pulse Oximeter Pulse Oximetry (%) 98 Oxygen Delivery Method Room Air Intake Visit Reasons: FU resp. status Allergies No Known Allergies [No Known Allergies*] Allergy (Verified 12/21/23 10:13) HPI HPI FU resp. status: Details: Kathleen is a pleasant 68-year-old female, never tobacco smoker everyday marijuana smoker, with underlying hypertension and asthma. At the last visit she was started on Symbicort and continues to report dyspnea on exertion as well as intermittent dry cough, however mildly improved. Continues to use albuterol MDI frequently with good effect. She does report post nasal drip, however RAST negative. She also noted paroxsymal nocturnal dsypnea and other symptoms suggestive of RADHA. Today presents to review sleep study results. Of note, patient reports new onset palpitations with exertion and continues with difficulty with blood pressure control, requesting a cardiology referral. [facility] Medical History (Updated 12/21/23 @ 17:00 by Tania Loredo NP) Carpal tunnel syndrome Asthma Hypertension Surgical History History of ear surgery S/P thyroid surgery Social History Alcohol intake: never Patient Tobacco Use Status: Never used Tobacco Substance Use Type: Marijuana Current occupational status: unemployed Current occupation: left handed Review of Systems Const Denies chills, Denies excessive sweating, Denies fever(s), Denies headache(s) and Denies night sweats Eyes Denies dry eyes, Denies irritation and Denies itchy eyes ENT Reports Normal hearing present, Denies headache(s), Denies nasal congestion, Denies nasal discharge and Denies sore throat Card Denies chest pain, Denies chest pain at rest, Denies chest pain with activity, Denies leg edema, Reports dyspnea on exertion and Denies orthopnea Resp Denies chest congestion, Denies excessive phlegm production, Denies pain on inspiration, Denies pain with cough, Reports dyspnea on exertion, Denies stridor and Denies wheezing Musc Denies myalgias Neuro Reports Normal hearing present and Denies headache(s) Endo Denies excessive sweating Yogi/Lymph Denies lymphadenopathy Aller/Immun Denies itchy eyes, Denies seasonal rhinorrhea and Denies wheezing Physical Exam Vital Signs: Last Vital Signs Pulse 73 12/21/23 10:09 BP 158/90 H 12/21/23 10:09 Pulse Ox 98 12/21/23 10:09 Oxygen Delivery Method Room Air 12/21/23 10:09 BMI result Body Mass Index 29.9 Const General: cooperative, healthy appearing, comfortable, no acute distress, well developed and alert Nutritional Appearance: obese Orientation/consciousness: patient oriented x3 Limitations: no limitations HEENT Head: Yes normal to inspection, Yes normocephalic and Yes atraumatic Ears: hearing grossly normal bilaterally and external ears normal Eyes General: appearance normal, both eyes and all related structures Eyelids: Yes eyelids normal Sclerae: sclerae normal EOM: EOMs intact bilaterally Neck Neck: Yes normal visual inspection and Yes no lymphadenopathy Lymphatic: no lymphadenopathy noted Chest Chest palpation & inspection: normal inspection of the chest Resp Effort & Inspection: normal respiratory effort, able to speak in complete sentences, no audible wheezes, no cough, no stridor, not tachypneic, no tripod positioning and no use of accessory muscles Auscultation: clear to auscultation bilaterally Cardio Jugular venous distension: no JVD Rate: regular rate Rhythm: regular rhythm Skin Other: warm, dry General skin exam: no rashes or lesions noted Neuro General: patient oriented x3 Cranial nerves: Yes Normal hearing present Cognition (Neuro): normal cognition Gait exam (Neuro): Normal gait present Extrem General: Yes normal to inspection, Yes capillary refill normal, Yes no clubbing, cyanosis or edema and Yes no pedal edema Psych Appearance: grossly normal and well kempt Speech and movement: Normal speech and movement present and Clear speech present Affect: normal affect Attitude: cooperative Thought process: Normal thought process present Thought content: Normal thought content present Insight: Good insight present (Psych) Judgement: Good judgement present (Psych) Assessment & Plan Assessment & Plan (1) Asthma: Code(s): J45.909 - Unspecified asthma, uncomplicated Category: Medical (2) Dyspnea: Code(s): R06.00 - Dyspnea, unspecified Category: Medical (3) Multiple pulmonary nodules: Code(s): R91.8 - Other nonspecific abnormal finding of lung field Category: Medical Plan Kathleen reports suboptimal control with Symbicort 80 mcg, will increase. Reviewed home sleep study which revealed mild RADHA, AHI 5.7, with recommendations for positional changes, which we discussed. She also reported post nasal drip which could be contributing to cough, will trial Flonase. She continues to report paroxsymal nocturnal dyspnea, denies orthopnea or bilateral lower extremity edema. She also reports palpitations with exertion, denies chest pain, which have been more noticeable over the last few weeks. She is requesting a cardiology referral, will enter this. She is aware if palpitations are persistent to seek emergent care. All questions were answered and patient is in agreement of plan. Will follow-up in 6-8 weeks to assess effectiveness of Symbicort, or sooner if needed. Orders: Referrals Cardiology Referral R00.2 - Palpitations, R06.00 - Dyspnea, unspecified Medications: New fluticasone propionate 50 mcg/actuation administer into each nostril 1 spray intranasal DAILY 16 grams 3RF budesonide-formoterol 160-4.5 mcg/actuation (Symbicort) 2 puffs inhalation Q12H 10.2 grams 3RF Discontinued budesonide-formoterol 80-4.5 mcg/actuation (Symbicort) Discontinued Reason: Patient Completed Course 2 puffs inhalation Q12H 30.6 ea 1RF J45.909 - Unspecified asthma, uncomplicated Coding Level of Care Code Est Pt Level 4 (49035) Diagnoses Asthma J45.909 Dyspnea R06.00 Multiple pulmonary nodules R91.8
== END 2023-12-21 10:43 | disposition home or self-care (01) ==
PROVIDERS: PCP Internal Medicine; Visit Provider Nurse Practitioner Family
DX: J45.909 Unspecified asthma, uncomplicated (principal); R06.00 Dyspnea, unspecified; R91.8 Other nonspecific abnormal finding of lung field
CPT/HCPCS: 99214

== ENCOUNTER → 2023-12-21 10:04 | Outpatient (BNVA) | payer OTHER, SELFPAY | PROVIDERS: PCP Internal Medicine; Visit Provider Nurse Practitioner Family | DX: J45.909 Unspecified asthma, uncomplicated (principal); R06.00 Dyspnea, unspecified; R91.8 Other nonspecific abnormal finding of lung field | CPT/HCPCS: 99212 ==

== ENCOUNTER 2024-01-07 10:55 | Outpatient (REF) | payer OTHER, SELFPAY ==
[2024-01-07 11:28] LABS: MANUAL DIFF FLAG NO
[2024-01-07 11:35] LABS: Basophils Percent Auto 0.7 % (0-2); Eosinophils Absolute Auto 0.2 X10*3/uL (0.0-0.4); Eosinophils Percent Auto 2.6 % (0-4); Hematocrit 41.3 % (37.0-47.0); Hemoglobin 14.2 g/dl (12.0-16.0); Imm Gran Abs Auto 0.01 X10*3/uL (0.00-0.03); Imm Gran Pct Auto 0.2 % (0.0-0.4); Lymphocytes Absolute Auto 2.3 X10*3/uL (1.2-4.9); Lymphocytes Percent Auto 40.2 % (20-40); Mean Corpuscular HGB Conc 34.4 g/dl (31.0-35.0); Mean Corpuscular Hemoglobin 31.6 pg (27.0-33.0); Mean Platelet Volume 9.6 fL (9.4-12.3); Monocytes Absolute Auto 0.5 X10*3/uL (0.1-1.2); Monocytes Percent Auto 9.2 % (2-11); Neutrophils Absolute Auto 2.7 x10*3/uL (2.0-8.3); Neutrophils Percent Auto 47.1 % (45-73); Platelet Count 152 X10*3/uL (160-400); Red Blood Count 4.49 X10*6/uL (4.20-5.50); Red Cell Distribution Width 11.4 % (11.0-16.0); White Blood Count 5.7 X10*3/uL (4.8-10.8)
[2024-01-07 12:24] LABS: Alanine Aminotransferase 29 U/L (0-31); Albumin Level 4.3 g/dL (3.5-5.0); Alkaline Phosphatase 59 U/L (39-117); Anion Gap 10 (12-20); Aspartate Amino Transferase 28 U/L (5-31); Bilirubin Total 0.7 mg/dL (0.0-1.0); Blood Urea Nitrogen 11 mg/dL (9-16); Calcium 9.6 mg/dL (8.4-10.2); Carbon Dioxide 31 mmol/L (22-29); Chloride 103 mmol/L (96-108); Cholesterol 180 mg/dL (<200); Estimated Glomerular Filt Rate > 60; Glucose Fasting 100 mg/dL (60-99); HDL Cholesterol 42 mg/dL (>40); LDL Cholesterol Calculated 102 mg/dL (<100); Potassium 3.3 mmol/L (3.3-5.1); Sodium 141 mmol/L (135-145); Total Protein 6.9 g/dL (6.5-8.0); Triglycerides 183 mg/dL (<150)
[2024-01-07 12:33] LABS: Free T4 (Free Thyroxine) 0.97 ng/dL (0.71-1.85); Thyroid Stimulating Hormone 4.59 uIU/mL (0.32-4.0); Vitamin D 25-OH Total 55.1 ng/mL (>30)
== END 2024-01-07 10:56 | disposition home or self-care (01) ==
LOC: HO.10HDL 10:55
PROVIDERS: Visit Provider Internal Medicine
DX: E03.9 Hypothyroidism, unspecified (principal); I12.9 Hypertensive chronic kidney disease with stage 1 through stage 4 chronic kidney disease, or unspecified chronic kidney disease; N18.9 Chronic kidney disease, unspecified; M85.80 Other specified disorders of bone density and structure, unspecified site
CPT/HCPCS: 36415; 80053; 80061; 82306; 84439; 84443; 85025

== ENCOUNTER 2024-01-29 10:09 | Outpatient (AMB) | payer OTHER, SELFPAY ==
--- NOTE | 2024-01-29 10:12 | A.OFFVIS_ITS ---
Vital Signs 01/29/24 10:13 Height 5 ft 4 in Weight 170 lb 8 oz BMI 29.3 BP 160/88 H Blood Pressure Location Rt brachial Position Sitting Pulse 54 Pulse Source Pulse Oximeter Pulse Oximetry (%) 98 Oxygen Delivery Method Room Air Intake Visit Reasons: FU resp. status Allergies No Known Allergies [No Known Allergies*] Allergy (Verified 01/29/24 10:15) HPI HPI FU resp. status: Details: Kathleen is a pleasant 68-year-old female, never tobacco smoker everyday marijuana smoker, with underlying hypertension and asthma. At the last visit she her Symbicort was increased and reports improvements in cough and dyspnea. She does note that over the last few days she has developed dry cough, chest congestion and difficulty expectorating. She denies fevers, chills or sick contacts. [facility] Medical History (Updated 12/21/23 @ 17:00 by Tania Loredo NP) Carpal tunnel syndrome Asthma Hypertension Surgical History History of ear surgery S/P thyroid surgery Social History Alcohol intake: never Patient Tobacco Use Status: Never used Tobacco Substance Use Type: Marijuana Current occupational status: unemployed Current occupation: left handed Review of Systems Const Denies chills, Denies excessive sweating, Denies fever(s), Denies headache(s) and Denies night sweats Eyes Denies dry eyes, Denies irritation and Denies itchy eyes ENT Reports Normal hearing present, Denies headache(s), Denies nasal congestion, Denies nasal discharge, Denies post nasal drip and Denies sore throat Card Denies chest pain, Denies chest pain at rest, Denies chest pain with activity, Denies claudication, Denies leg edema, Denies dyspnea, Denies orthopnea and Denies paroxysmal nocturnal dyspnea Resp Denies excessive phlegm production, Denies pain on inspiration, Denies pain with cough, Denies dyspnea, Denies stridor and Denies wheezing Musc Denies myalgias Neuro Reports Normal hearing present and Denies headache(s) Endo Denies excessive sweating Yogi/Lymph Denies lymphadenopathy Aller/Immun Denies itchy eyes, Denies seasonal rhinorrhea and Denies wheezing Physical Exam Vital Signs: Last Vital Signs Pulse 54 01/29/24 10:13 BP 160/88 H 01/29/24 10:13 Pulse Ox 98 01/29/24 10:13 Oxygen Delivery Method Room Air 01/29/24 10:13 BMI result Body Mass Index 29.3 Const General: cooperative, healthy appearing, comfortable, no acute distress, well developed and alert Nutritional Appearance: obese Orientation/consciousness: patient oriented x3 Limitations: no limitations HEENT Head: Yes normal to inspection, Yes normocephalic and Yes atraumatic Ears: hearing grossly normal bilaterally and external ears normal Eyes General: appearance normal, both eyes and all related structures Eyelids: Yes eyelids normal Sclerae: sclerae normal EOM: EOMs intact bilaterally Neck Neck: Yes normal visual inspection and Yes no lymphadenopathy Lymphatic: no lymphadenopathy noted Chest Chest palpation & inspection: normal inspection of the chest Resp Effort & Inspection: normal respiratory effort, able to speak in complete sentences, no audible wheezes, no stridor, not tachypneic, no tripod positioning and no use of accessory muscles Auscultation: crackles on the left in the lower lung brooks Cardio Jugular venous distension: no JVD Rate: regular rate Rhythm: regular rhythm Skin Other: warm, dry General skin exam: no rashes or lesions noted Neuro General: patient oriented x3 Cranial nerves: Yes Normal hearing present Cognition (Neuro): normal cognition Gait exam (Neuro): Normal gait present Extrem General: Yes normal to inspection, Yes capillary refill normal, Yes no clubbing, cyanosis or edema and Yes no pedal edema Psych Appearance: grossly normal and well kempt Speech and movement: Normal speech and movement present and Clear speech present Affect: normal affect Attitude: cooperative Thought process: Normal thought process present Thought content: Normal thought content present Insight: Good insight present (Psych) Judgement: Good judgement present (Psych) Assessment & Plan Assessment & Plan (1) Asthma: Code(s): J45.909 - Unspecified asthma, uncomplicated Category: Medical (2) Dyspnea: Code(s): R06.00 - Dyspnea, unspecified Category: Medical (3) Multiple pulmonary nodules: Code(s): R91.8 - Other nonspecific abnormal finding of lung field Category: Medical Plan Will treat bronchitic symptoms with doxycyline. She is aware to call if symptoms do not improve. Advised to continue Symbicort and albuterol. Patient's BP continues to be elevated and has an evaluation with cardiology. All questions were answered and patient is in agreement of plan. Will follow-up in 6-8 weeks or sooner if needed. Orders: Orders CT chest wo IV con 01/29/24 R91.8 - Other nonspecific abnormal finding of lung field Medications: New doxycycline hyclate 100 mg PO BID 14 caps 0RF Coding Level of Care Code Est Pt Level 4 (93940) Diagnoses Asthma J45.909 Dyspnea R06.00 Multiple pulmonary nodules R91.8
[2024-01-29 10:13] VITALS: BP 160/88; PULSE 54; O2SAT 98; BMI 29.3
== END 2024-01-29 10:39 | disposition home or self-care (01) ==
PROVIDERS: PCP Internal Medicine; Visit Provider Nurse Practitioner Family
DX: J45.909 Unspecified asthma, uncomplicated (principal); R06.00 Dyspnea, unspecified; R91.8 Other nonspecific abnormal finding of lung field
CPT/HCPCS: 99214

== ENCOUNTER → 2024-01-29 10:09 | Outpatient (BNVA) | payer OTHER, SELFPAY | PROVIDERS: PCP Internal Medicine; Visit Provider Nurse Practitioner Family | DX: J45.909 Unspecified asthma, uncomplicated (principal); R06.00 Dyspnea, unspecified; R91.8 Other nonspecific abnormal finding of lung field | CPT/HCPCS: 99212 ==

== ENCOUNTER 2024-04-02 15:10 | Emergency (ER) | payer OTHER, SELFPAY ==
--- NOTE | ~2024-04-02 | XR_ITS ---
EXAMINATION: XR CHEST CLINICAL INFORMATION: cough, body aches COMPARISON: 05/10/2023. TECHNIQUE: 2 views of the chest were obtained. FINDINGS: The cardiac, hilar, and mediastinal contours are normal. Minimal linear atelectasis left midlung. The lungs are otherwise clear bilaterally. There is no pneumothorax or pleural effusion. There is no focal osseous or soft tissue abnormality. Mild spinal degenerative changes. XR/XR chest 2V IMPRESSION: No active pulmonary disease. Electronically signed by: Hans Salinas MD 04/02/2024 03:59 PM EST
--- NOTE | 2024-04-02 15:17 | ED.GENADULT ---
HPI - General Adult General Chief complaint: Upper Respiratory Symptoms Stated complaint: Body Pain Time Seen by Provider: 04/02/24 19:21 Source: patient Mode of arrival: ambulatory Limitations: no limitations History of Present Illness ED Provider: Dr. Max Yoo HPI narrative: 69-year-old female with a history of asthma who presents emergency department for evaluation of congestion, cough, chills, headache and chest tightness. Patient states she has been sick for 2-3 days. She states that her symptoms got worse today so she came to the department for evaluation. Patient denied abdominal pain, nausea, vomiting, diarrhea, body aches. Related Data Home Medications ?Medication ?Instructions ?Recorded ?Confirmed atenolol 50 mg tablet 50 mg PO DAILY 12/22/21 05/23/23 hydrochlorothiazide 25 mg tablet 25 mg PO DAILY 12/22/21 05/23/23 levothyroxine 50 mcg tablet mcg PO 07/25/23 Previous Rx's ?Medication ?Instructions ?Recorded celecoxib 200 mg capsule (Celebrex) 200 mg PO BID 30 days #60 caps 05/29/22 albuterol sulfate 90 mcg/actuation 2 inh inhalation Q4-6H PRN 05/10/23 breath activated powder inhaler shortness of breath or wheezing #1 ea budesonide-formoterol HFA 160 2 puff inhalation Q12H #10.2 grams 12/21/23 mcg-4.5 mcg/actuation aerosol inhaler (Symbicort) doxycycline hyclate 100 mg capsule 100 mg PO BID #14 caps 01/29/24 fluticasone propionate 50 1 spray intranasal DAILY #48 mL 03/17/24 mcg/actuation nasal spray,suspension prednisone 20 mg tablet 40 mg (2 x 20 mg) PO DAILY 5 days 04/02/24 #10 tabs Allergies Allergy/AdvReac Type Severity Reaction Status Date / Time No Known Allergies Allergy Verified 04/02/24 15:21 [No Known Allergies*] Review of Systems Review of Systems: Yes all other systems are reviewed and are negative [facility] Past Medical History [facility] Narrative: Social history: She denies tobacco, alcohol and drug use Medical History (Updated 04/02/24 @ 19:37 by Max Yoo MD) Carpal tunnel syndrome Asthma Hypertension Surgical History History of ear surgery S/P thyroid surgery Social History Social History Alcohol intake: never Patient Tobacco Use Status: Never used Tobacco Substance Use Type: Marijuana Advance Directives: No Advance Directives Information Provided: No Do you have a plan to hurt others: No Plan Current occupational status: unemployed Current occupation: left handed Physical Exam ED Vital Signs: Vital Signs - 24 hr 04/02/24 15:18 Temperature 98.2 F Pulse Rate 64 Respiratory Rate 16 Blood Pressure 141/112 H Pulse Oximetry 96 Oxygen Delivery Method Room Air BMI result Body Mass Index 34.1 Vital signs revealed an elevated blood pressure otherwise unremarkable Exam: General: Awake, alert in no distress Head: Normocephalic, atraumatic EENT: PERRL, Lids normal, sclera normal, conjunctiva normal, nose normal , ears normal, throat without erythema or exudates Neck: Supple, no adenopathy Lung: breath sounds symmetric, wheezing at the end of expiration, no rales or rhonchi Chest: symmetric movement, nontender Heart: regular rate and rhythm, normal S1, S2 no murmurs or rubs Abdomen: soft, non-tender, nondistended, normal bowel sounds Back: no vertebral tenderness, no CVAT Extremities: no deformities, moves all extremities symmetrically Neuro: Awake, alert, oriented, normal speech, cranial nerves intact, moves all extremities symmetrically Psych: Pleasant, cooperative Course Course Course Narrative: This is a rapid medical exam performed by Vicente Beltran NP: Additional HPI, ROS, PE not included below will be deferred to primary provider. Patient is a 69-year-old female with history of asthma presenting to the ED with complaint of body aches. 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 Reports occasional cough. Plan: viral serology, cxr Medical Decision Making Medical Decision Making MDM Narrative: 69-year-old female with a history of asthma who presents emergency department for evaluation of congestion, cough, chills, headache and chest tightness times 2-3 day. Vital signs revealed an elevated blood pressure otherwise unremarkable. Lung exam revealed wheezing at the end of expiration. Differential diagnosis: ?Includes but is not limited to to pneumonia, bronchitis, viral URI, COVID-19, influenza, RSV Course: The patient's laboratory evaluation is interpreted by me as follows: COVID-19, influenza and RSV were negative. Chest x-ray revealed no evidence for pneumonia. Patient's presentation is consistent with a viral URI which she was triggered an asthma exacerbation the patient. Patient was advised to continue using your albuterol inhaler were as prescribed by your provider. She was started on prednisone 40 mg once a day for 5 days and given her 1st dose here in the emergency department. Patient was advised to take Tylenol 650 mg 3 times a day as needed for pain or fever. She was given printed and verbal instructions discharged home. Admission/Observation Consideration of admission/observation: Escalation of care including admission/observation considered (Yes) Lab Data MDM Lab Attestation statement: I reviewed the patient's lab results. Labs: Lab Results 04/02/24 Range/Units 15:30 Influenza Type A (PCR) NEGATIVE (Negative) Influenza Type B (PCR) NEGATIVE (Negative) RSV RNA Qual (PCR) NEGATIVE (Negative) SARS-CoV-2 RNA (RT-PCR) NEGATIVE (Negative) Independent Interpretation I performed an independent interpretation of an: Plain X-Ray Interpretation: My interpretation patient's two view chest x-ray is as follows: No acute disease Radiology Impression Discussion of test interpretation with radiology: I have reviewed the radiologist's reading. Radiologist Impression: XR chest 2V IMPRESSION: No active pulmonary disease. Electronically signed by: Hans Salinas MD 04/02/2024 03:59 PM EST Prescription Management I considered prescription management with: Antibiotic Chronic Conditions Patient?s care impacted by: Other (Asthma) Discharge Plan Discharge Clinical Impression: Viral URI, Asthma exacerbation Patient Disposition: Home, Self-Care Instructions: Upper Respiratory Infection (ED) Additional Instructions: Your COVID-19, influenza and RSV tests were negative. Your chest x-ray was normal with no evidence for pneumonia. Your symptoms are consistent with a viral infection causing your congestion in your chest pain. Take prednisone 20 mg pill 2 pills once a day for 5 days. While you ?are taking prednisone, do not take any NSAIDs (Motrin, Advil, ibuprofen, Aleve, naproxen). Take ibuprofen 200 mg pills, 2 pills every 6 hours as needed for pain or fever. Take Tylenol (acetaminophen) 325 mg pills, 2 pills every 6 hours as needed for pain or fever. Follow-up with your doctor in 2 days. Please return to the emergency department if your symptoms get worse or if you develop any symptoms that are concerning to you. Prescriptions: New prednisone 20 mg tablet 40 mg PO DAILY 5 Days Qty: 10 0RF No Action fluticasone propionate 50 mcg/actuation spray,suspension 1 spray intranasal DAILY Qty: 48 1RF albuterol sulfate 90 mcg/actuation aerosol powdr breath activated 2 inh inhalation Q4-6H PRN (Reason: shortness of breath or wheezing) Qty: 1 0RF hydrochlorothiazide 25 mg tablet 25 mg PO DAILY atenolol 50 mg tablet 50 mg PO DAILY celecoxib [Celebrex] 200 mg capsule 200 mg PO BID 30 Days Qty: 60 3RF budesonide-formoterol [Symbicort] 160-4.5 mcg/actuation HFA aerosol inhaler 2 puff inhalation Q12H Qty: 10.2 3RF doxycycline hyclate 100 mg capsule 100 mg PO BID Qty: 14 0RF levothyroxine 50 mcg tablet PO Print Language: Ukrainian
[2024-04-02 15:18] VITALS: BP 141/112; PULSE 64; RESP 16; TEMP 36.8; O2SAT 96; BMI 34.1
[2024-04-02 16:19] LABS: Influenza A PCR NEGATIVE (Negative); Influenza B PCR NEGATIVE (Negative); Resp Syncy Virus RNA Qual PCR NEGATIVE (Negative); SARS COV2 PCR INHOUSE NEGATIVE (Negative)
[2024-04-02 19:43] VITALS: BP 157/79; PULSE 56; RESP 16; TEMP 36.9; O2SAT 97
[2024-04-02] MEDS: predniSONE 20 MG TABLET 40 MG PO (19:43)
[2024-04-02] MEDS: Acetaminophen 325 MG TABLET 650 MG PO (19:43)
[2024-04-02 19:59] VITALS: BP 157/79; PULSE 56; RESP 16; TEMP 36.9; O2SAT 97
== END 2024-04-02 20:00 | disposition home or self-care (01) ==
PROVIDERS: Registered Nurse Emergency; Emergency Provider Emergency Medicine Emergency Medical Services; PCP Internal Medicine
DX: J06.9 Acute upper respiratory infection, unspecified (principal); J45.901 Unspecified asthma with (acute) exacerbation; M79.10 Myalgia, unspecified site; R05.9 Cough, unspecified; R51.9 Headache, unspecified; R07.89 Other chest pain; Z03.818 Encounter for observation for suspected exposure to other biological agents ruled out; Z79.899 Other long term (current) drug therapy
CPT/HCPCS: 0241U; 71046; 99283

== ENCOUNTER → 2024-04-02 15:21 | Outpatient (BNV) | payer OTHER, SELFPAY | PROVIDERS: PCP Internal Medicine; Visit Provider Radiology Diagnostic Radiology | DX: R05.9 Cough, unspecified (principal) | CPT/HCPCS: 71046 ==

== ENCOUNTER 2024-05-01 10:03 | Outpatient (AMB) | payer OTHER, SELFPAY ==
--- NOTE | 2024-05-01 10:13 | A.OFFVIS_ITS ---
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 Required: No Accompanied by: Self / Same As Patient Allergies No Known Allergies [No Known Allergies*] Allergy (Verified 04/02/24 15:21) Medication List - Last Reconciled 05/01/24 by Rodo Padilla MD albuterol sulfate 90 mcg/actuation 2 inhalations inhalation Q4-6H PRN amlodipine 5 mg PO DAILY atenolol 50 mg PO DAILY budesonide-formoterol 160-4.5 mcg/actuation (Symbicort) 2 puffs inhalation Q12H celecoxib (Celebrex) 200 mg PO BID 30 days fluticasone propionate 50 mcg/actuation 1 spray intranasal DAILY hydrochlorothiazide 25 mg PO DAILY levothyroxine mcg PO HPI Comments Details: Thank you for referring Kathleen in cardiology consultation today for variety of different cardiac symptoms. She was having symptoms of recurrent episodes of palpitations, she says she can hear it in the year and can feel rapid heart rate. Symptoms happen almost every couple of days. Symptoms last for about 10 minutes. No associated symptoms of chest pain, lightheadedness, syncope or worsening shortness of breath. She does have shortness of breath and he is currently being worked up from pulmonary perspective. However she also gets intermittent episodes of chest pain which are of multiple different types. She gets 1 shooting chest pain which happens mostly at rest. However she also notices pressure heaviness in the chest which is not always exertional in nature. She is concerned about the symptoms. She was multiple risk factors. She notices that her blood pressure is elevated at home and occasionally blood pressure up to 160/90. She denies any orthopnea, PND, leg edema to me. Denies any syncopal episodes. [facility] Medical History (Updated 05/01/24 @ 10:44 by Rodo Padilla MD) Carpal tunnel syndrome Asthma Hypertension Surgical History History of ear surgery S/P thyroid surgery Family History Mother COPD (chronic obstructive pulmonary disease) Paternal Grandmother Stroke Social History Alcohol intake: current Alcohol intake frequency: holidays/special occasions only Patient Tobacco Use Status: Never used Tobacco Substance Use Type: Marijuana Current occupational status: unemployed Current occupation: left handed Review of Systems Const Denies chills, Denies daytime sleepiness, Denies fatigue, Denies fever(s), Denies poor appetite, Denies snoring, Denies stops breathing during sleep, Denies weakness, Denies weight gain and Denies weight loss Eyes Denies loss of vision ENT Denies dizziness and Denies hearing loss Card Denies chest pain, Denies irregular heart rhythm, Denies claudication, Denies leg edema, Denies lightheadedness, Denies palpitations, Denies dyspnea on exer tion and Denies orthopnea Resp Denies cough, Denies excessive phlegm production, Denies dyspnea on exertion, Denies snoring and Denies wheezing GI Denies abdominal pain, Denies hematochezia, Denies change in bowel habits, Denies nausea and Denies vomiting Denies urinary frequency and Denies dysuria Musc Denies arthralgias, Denies muscle weakness, Denies numbness and Denies other Skin/Breast Denies nail changes and Denies rash Neuro Denies Abnormal speech present, Denies dizziness, Denies loss of vision, Denies memory loss, Denies numbness and Denies weakness Psych Denies depression and Denies memory loss Endo Denies fatigue and Denies palpitations Yogi/Lymph Denies easy bruising Aller/Immun Denies wheezing Physical Exam Vital Signs: Last Vital Signs Pulse 62 05/01/24 10:14 BP 160/96 H 05/01/24 10:14 BMI result Body Mass Index 29.9 Const General: cooperative, comfortable, no acute distress, alert and awake Nutritional Appearance: overweight Orientation/consciousness: patient oriented x3 Limitations: no limitations HEENT Head: Yes normocephalic and Yes atraumatic Neck Neck: Yes trachea midline, Yes supple and Yes no JVD Resp Effort & Inspection: normal respiratory effort Auscultation: clear to auscultation bilaterally Cardio Jugular venous distension: no JVD Palpation: normal PMI Rate: regular rate Rhythm: regular rhythm Heart sounds: S1 normal heart sound present, S2 normal heart sound present, no click, no gallops, no murmurs and no rubs GI Auscultation: normal bowel sounds Skin General skin exam: no rashes or lesions noted Neuro General: patient oriented x3 and no focal motor deficits Speech: No Abnormal speech present Extrem General: Yes no clubbing, cyanosis or edema Office Procedures EKG Details: EKG shows normal sinus rhythm normal EKG at 62 beats per minute [id number], Complete Assessment & Plan Assessment & Plan (1) Palpitations: Code(s): R00.2 - Palpitations Category: Medical Plan: Patient was intermittent symptoms of palpitations which are present very frequently. Will obtain a 7 day Holter monitor to assess for the same. Possible differential diagnose include SVT versus atrial fibrillation. Other possibility appears to be anxiety/panic attack or inappropriate sinus tachycardia. Will further assess based on the findings of the Holter monitor. Also suggest echocardiogram to evaluate LV structure and function. Avoidance of stimulants was discussed. Stress mitigation strategies were discussed. Continue atenolol therapy. (2) Atypical chest pain: Code(s): R07.89 - Other chest pain Plan: Patient was intermittent episodes of atypical chest pain. Somewhat with chest pain syndrome are noncardiac in origin. However she was symptoms of chest pressure which could represent myocardial ischemia given her age and multiple risk factors. Baseline EKGs normal would suggest a treadmill stress test to evaluate for myocardial ischemia. If this is within normal limits, look for alternative source of chest pain syndrome. Can consider the coronary calcium score if she is willing to to identify for presence of underlying coronary atherosclerosis which may require more intense medical therapy. (3) Hypertension: Code(s): I10 - Essential (primary) hypertension Category: Medical Plan: Hypertension which is uncontrolled. Recommend to increase amlodipine 10 mg daily. Advised stress mitigation strategies low-salt diet was discussed advised to continue monitor blood pressure at home maintain a log. Goal blood pressure less than 130/84. Will follow up in the clinic in 6 weeks time, sooner p.r.n.. Thank you for allowing me to partake in his care Coding Level of Care Code New Pt Level 4 (42932) Complex EM visit Add On G2211 Diagnoses Palpitations R00.2 Atypical chest pain R07.89 Hypertension I10 CPT Codes EKG - CPT: [id number], Complete ([id number])
[2024-05-01 10:14] VITALS: BP 160/96; PULSE 62; BMI 29.9
== END 2024-05-01 10:38 | disposition home or self-care (01) ==
PROVIDERS: PCP Internal Medicine; Visit Provider Internal Medicine Cardiovascular Disease
DX: R00.2 Palpitations (principal); R07.89 Other chest pain; I10 Essential (primary) hypertension
CPT/HCPCS: 93010; 99204; G2211

== ENCOUNTER → 2024-05-01 10:03 | Outpatient (BNVA) | payer OTHER, SELFPAY | PROVIDERS: PCP Internal Medicine; Visit Provider Internal Medicine Cardiovascular Disease | DX: R00.2 Palpitations (principal); R07.89 Other chest pain; I10 Essential (primary) hypertension | CPT/HCPCS: 93005; 99202 ==

== ENCOUNTER 2024-05-23 14:47 | Outpatient (REF) | payer OTHER, SELFPAY ==
--- NOTE | ~2024-05-23 | CT_ITS ---
CLINICAL HISTORY: R91.8 - Other nonspecific abnormal finding of lung field CT chest without contrast Comparison: CT/CA/SR - CT CHEST WO IV CON - 07/13/23 13:57 EDT Findings: The heart size is normal. The visualized thyroid and mediastinum are unremarkable. Small tracheal diverticulum. Stable multiple pulmonary nodules: 3.8 mm in the right upper lobe series 4, image 27; 4 mm in the left lower lobe image 86; 4 mm in the right lower lobe image 98. Stable additional multiple micronodules. Gallstones in the gallbladder. No acute fractures. IMPRESSION: Stable in size of multiple pulmonary nodules. CT chest follow-up in 1 year as indicated. Fleischner Society 2017 Guidelines for incidentally detected indeterminate nodules in persons 35 years of age or older. Single Solid Nodules: 5 mm or smaller nodules need no follow-up in low risk, and [address] follow-up is optional in high risk patients. 6-8 mm nodules have optional [address] follow-up in low risk, and 6-[address] follow-up followed by 18-[address] follow-up if no change in high risk patients. 9 mm or larger nodules should consider CT, PET/CT, or biopsy at 3 months regardless of patient risk. Multiple Solid Nodules: 5 mm or smaller nodules need no follow-up in low risk, and [address] follow-up is optional in high risk patients. 6-8 mm nodules need 3-[address] follow-up followed by an optional 18-[address] follow-up regardless of patient risk. 9 mm or larger nodules should consider 3-[address] follow-up. For low risk 18-24 month follow-up is optional, whereas for high risk it is needed. Single Ground Glass Nodules: 5 mm or smaller nodules need no followup 6 mm and larger nodules need CT at 6-12 months to confirm persistence, then CT every 2 years until 5 years Single Subsolid Nodules: 5 mm or smaller nodules need no followup 6 mm and larger nodules need CT at 3-6 months to confirm persistence. If no change and solid component /T/lt;6 mm, then CT every year until 5 years Multiple Ground Glass or Subsolid Nodules: 5 mm or smaller nodules need CT at 3-6 months. If stable, optional CT at 2 and 4 years. 6 mm or larger nodules need CT at 3-6 months. Subsequent management based on most suspicious nodule This document has been electronically signed by: Feliciano Guerrier MD on 05/24/2024 13:15:23
== END 2024-05-23 14:48 | disposition home or self-care (01) ==
LOC: HO.CT 14:47
PROVIDERS: PCP Internal Medicine; Visit Provider Nurse Practitioner Family
DX: R91.8 Other nonspecific abnormal finding of lung field (principal)
CPT/HCPCS: 71250

== ENCOUNTER → 2024-05-23 14:49 | Outpatient (BNV) | payer OTHER, SELFPAY | PROVIDERS: PCP Internal Medicine; Visit Provider Nuclear Medicine | DX: R91.8 Other nonspecific abnormal finding of lung field (principal) | CPT/HCPCS: 71250 ==

== ENCOUNTER → 2024-05-28 08:43 | Outpatient (REF) | payer OTHER, SELFPAY ==
--- NOTE | 2024-05-28 08:51 | CA_ITS ---
Transthoracic Echocardiogram Patient (Last, First, Middle): Kathleen Antoine J Gender: Female Date of : 1955 Age: 69 Procedure Date: 05/28/2024 Procedure Type: Transthoracic Echocardiogram Location: OP Height: 162.56 cm Weight: 78.93 kg BSA: 1.84 m2 Heart Rate: bpm BP: 128 / 86 mmHg Glass Selector: RACHELE Referring MD: Rodo Padilla MD Statistical Clerk Advertising: Rodo Padilla MD Symptoms: R00.2 - Palpitations Study Quality: Fair ECG Rhythm: Sinus Conclusions: - 1. Normal LV ejection fraction of 60 65% with pseudonormal filling pattern 2. Mild calcific mitral valve changes noted with normal cardiac valvular Dopplers 3. Normal RV systolic pressure 4. Upper limits of normal ascending aortic size 5. No gross pericardial effusion Findings Left Ventricle Normal left ventricular size, thickness, and systolic function. The visually estimated ejection fraction is between 60-65%. Spectral Doppler is indicative of a pseudonormal filling pattern. Right Ventricle Normal right ventricular cavity size and systolic function. Atria Both atria are normal in size. There is no evidence of interatrial shunt. Aortic Valve Normal aortic valve structure and function. There is no aortic valve stenosis. There is no aortic valve regurgitation. Mitral Valve There is mild anterior and posterior mitral leaflet thickening. There is mild mitral annular calcification. There is trace mitral valve regurgitation. There is no mitral valve stenosis. Pulmonic Valve The pulmonic valve was not well visualized. Tricuspid Valve Likely normal tricuspid valve structure and function. There is trace tricuspid valve regurgitation. The right ventricular systolic pressure is normal. The right ventricular systolic pressure is 16 mmHg. Normal right atrial pressure. There is no evidence of pulmonary hypertension. Great Vessels The pulmonary artery was not well visualized. Venous The inferior vena cava is normal in size and collapses greater than 50% with inspiration. Pericardium/Pleural There is no evidence of pericardial effusion. Prior Study Comparison No prior study available for comparison. Measurements 2D Linear Measurements IVSd: 0.96 0.6-0.9/0.6-1.0 cm LVIDd: 4.27 3.9-5.3/4.2-5.9 cm LVIDd Index: 2.32 2.4-3.2/2.2-3.1 cm/m2 LVIDs: 2.79 2.0-3.6 cm LVPWd: 0.77 0.7-1.1 cm LA Diam: 3.50 2.7-3.8/3.0-4.0 cm LAIDs Index: 1.90 1.5-2.3 cm/m2 LV Mass: 143.67 67-162/88-224 g LV Mass Index: 78.08 43-95/49-115 g/m2 LVOT Diam: 1.90 3.0+(-)1.3 cm 2D Systolic Function EF 4C: 68.60 >55% EF 2C: 62.20 >55% EF BiP: 64.40 >55% Mitral Valve MV Pk E: 0.71 MV PK A: 0.63 MV Decel Time: 208.00 E/A: 1.10 E'Lateral: 10.70 E'Medial: 5.77 E/E' Med: 12.30 E/E' Lat: 6.60 PHT: 61.00 MVA PHT: 3.61 Decel Pierce: 3.42 Aortic Valve AoV Pk Mina: 1.19 AoV Mn Mina: 0.92 AoV VTI: 0.30 AoV Pk Grad: 6.00 Aov Mn Grad: 4.00 MARCOS Cont.VTI: 2.22 LVOT LVOT Pk Mina: 1.02 LVOT Mn Mina: 0.67 LVOT VTI: 0.23 LVOT Pk Grad: 4.00 LVOT Mn Grad: 2.00 LVOT Diam: 1.90 LVOT Area: 2.84 Diastolic Function MV Pk E: 0.71 MV Pk A: 0.63 E/A: 1.10 E'Medial: 5.77 E/E' Med: 12.30 E' Laterial: 10.70 E/E' Lat: 6.60 Right Ventricle TAPSE (mm): 23.50 TVS' Mina: 8.92 Tricuspid Valve TR Pk Mina: 1.82 TR Pk Grad: 13.00 RA Press: 3.00 RVSP: 16.00 Great Vessels Aorta Sinus of Valsalva: 3.18 2.0-3.[address] Ridge: 2.69 1.7-3.4 cm Ao Asc: 3.50 2.1-3.4 cm Updated in Other Vendor System with Status of Final Rodo Padilla MD electronically signed on 05/28/2024 1:28:35 PM with status of Final
--- NOTE | 2024-05-28 08:51 | CA_ITS ---
Acquisition Time: 2024-05-28 10:10:11 Total Exercise Time: 00:06:50 Test Indications: CHEST PAIN, SOB Medications: Protocol: SHANELLE Max HR: 127 BPM 83% of Pred: 152 BPM Max BP: 162/72 mmHG Max Work Load: 7.7 METS Exercise Stress Tets with exercise 6 mins 50 secs of Shanelle Protocol lowering speed to 3.0mph, achieving 83% MPHR, with reports of SOB, no chest pain, without any arrythmias, with normotensive response to exercise. EKG hard to interpret during exercise due to artifacts, no EKG changes during recovery that meets criteria for ischemia. In recovery, breathing returned to baseline. Test reviewed with Dr. Fuentes. Referred By: Rodo Padilla Electronically Signed By: Jagjit Wyatt
== END ==
LOC: HO.CARD 08:43
PROVIDERS: PCP Internal Medicine; Visit Provider Internal Medicine Cardiovascular Disease
DX: R07.89 Other chest pain (principal); R00.2 Palpitations
CPT/HCPCS: 93017; 93242; 93306

== ENCOUNTER → 2024-05-28 08:51 | Outpatient (BNV) | payer OTHER, SELFPAY | PROVIDERS: PCP Internal Medicine | DX: I42.8 Other cardiomyopathies (principal); I34.81 Nonrheumatic mitral (valve) annulus calcification; R06.02 Shortness of breath | CPT/HCPCS: 93016; 93018; 93320; 93325; 93350 ==

== ENCOUNTER 2024-06-13 11:12 | Outpatient (AMB) | payer OTHER, SELFPAY ==
--- NOTE | 2024-06-13 11:15 | MHC.OFFVIS ---
Vital Signs 06/13/24 11:19 Height 5 ft 4 in Weight 177 lb BMI 30.4 BP 148/80 H Blood Pressure Location Rt brachial Position Sitting Pulse 65 Pulse Source Pulse Oximeter Pulse Oximetry (%) 96 Oxygen Delivery Method Room Air Intake Visit Reasons: fu resp. status Supervisor Matrix Required: No Supervisor Matrix Services: Supervisor Matrix Offered & Declined Accompanied by: Self / Same As Patient Allergies No Known Allergies [No Known Allergies*] Allergy (Verified 06/13/24 11:20) Medication List - Last Reconciled 06/13/24 by Kathleen Gupta LPN albuterol sulfate 90 mcg/actuation 2 inhalations inhalation Q4-6H PRN amlodipine 10 mg PO DAILY atenolol 50 mg PO DAILY budesonide-formoterol 160-4.5 mcg/actuation (Symbicort) 2 puffs inhalation Q12H celecoxib (Celebrex) 200 mg PO BID 30 days fluticasone propionate 50 mcg/actuation 1 spray intranasal DAILY hydrochlorothiazide 25 mg PO DAILY levothyroxine mcg PO HPI HPI fu resp. status: Details: Kathleen is a pleasant 69-year-old female, never tobacco smoker, everyday marijuana smoker, with underlying hypertension and asthma. She has had suboptimal control on Symbicort 160mcg BID continues to report dyspnea and exertion with intermittent wheezing. PFT 06/02 could not complete, unable to meet ATS standards and not interested in repeating study. Prior home sleep study revealed mild RADHA AHI 5.7, with no significant nocturnal hypoxemia, recommendations for position therapy which she has been attempting. She continues to report paroxsymal nocturnal dyspnea multiple times per month, however not interested in in lab sleep study for more thorough assessment. Since the last visit, patient has been under the care of cardiology and has follow up next week to review results. Of note, patient reports chronic issues with right ear previously under the care of ENT, and interested in referral. [facility] Medical History (Updated 06/13/24 @ 12:16 by Tania Loredo NP) Carpal tunnel syndrome Asthma Hypertension Surgical History History of ear surgery S/P thyroid surgery Family History Mother COPD (chronic obstructive pulmonary disease) Paternal Grandmother Stroke Social History Alcohol intake: current Alcohol intake frequency: holidays/special occasions only Patient Tobacco Use Status: Never used Tobacco Substance Use Type: Marijuana Current occupational status: unemployed Current occupation: left handed Review of Systems Const Denies chills, Denies excessive sweating, Denies fever(s), Denies headache(s) and Denies night sweats Eyes Denies dry eyes, Denies irritation and Denies itchy eyes ENT Reports Normal hearing present, Denies headache(s), Denies nasal congestion, Denies nasal discharge, Denies post nasal drip and Denies sore throat Card Denies chest pain, Denies chest pain at rest, Denies chest pain with activity, Denies claudication, Denies leg edema, Denies orthopnea and Denies paroxysmal nocturnal dyspnea Resp Denies excessive phlegm production, Denies pain on inspiration, Denies pain with cough, Denies stridor and Denies wheezing Musc Denies myalgias Neuro Reports Normal hearing present and Denies headache(s) Endo Denies excessive sweating Yogi/Lymph Denies lymphadenopathy Aller/Immun Denies itchy eyes, Denies seasonal rhinorrhea and Denies wheezing Physical Exam Vital Signs: Last Vital Signs Pulse 65 06/13/24 11:19 BP 148/80 H 06/13/24 11:19 Pulse Ox 96 06/13/24 11:19 Oxygen Delivery Method Room Air 06/13/24 11:19 BMI result Body Mass Index 30.4 Const General: cooperative, healthy appearing, comfortable, no acute distress, well developed and alert Nutritional Appearance: overweight Orientation/consciousness: patient oriented x3 Limitations: no limitations HEENT Head: Yes normal to inspection, Yes normocephalic and Yes atraumatic Ears: hearing grossly normal bilaterally and external ears normal Eyes General: appearance normal, both eyes and all related structures Eyelids: Yes eyelids normal Sclerae: sclerae normal EOM: EOMs intact bilaterally Neck Neck: Yes normal visual inspection and Yes no lymphadenopathy Lymphatic: no lymphadenopathy noted Chest Chest palpation & inspection: normal inspection of the chest Resp Effort & Inspection: normal respiratory effort, able to speak in complete sentences, no audible wheezes, no stridor, not tachypneic, no tripod positioning and no use of accessory muscles Cardio Jugular venous distension: no JVD Rate: regular rate Rhythm: regular rhythm Skin Other: warm, dry General skin exam: no rashes or lesions noted Neuro General: patient oriented x3 Cranial nerves: Yes Normal hearing present Cognition (Neuro): normal cognition Gait exam (Neuro): Normal gait present Extrem General: Yes normal to inspection, Yes capillary refill normal, Yes no clubbing, cyanosis or edema and Yes no pedal edema Psych Appearance: grossly normal and well kempt Speech and movement: Normal speech and movement present and Clear speech present Affect: normal affect Attitude: cooperative Thought process: Normal thought process present Thought content: Normal thought content present Insight: Good insight present (Psych) Judgement: Good judgement present (Psych) Results Reviewed Results Reviewed: [address] [address] [address] Scan Report Signed Patient: Kathleen Antoine MR#: [id number] : 1955 Acct:[id number] Age/Sex: 69 / F ADM Date: 05/23/24 Loc: HO.CT Attending Dr: Tania Loredo NP Ordering Physician: Tania Loredo NP Date of Service: 05/23/24 Procedure(s): CT chest wo IV con Accession Number(s): [id number] cc: Yomi Tamez MD; Tania Loredo NP~ Report Number: [id number]: Total DLP = 162.00 mGy-cm CLINICAL HISTORY: R91.8 - Other nonspecific abnormal finding of lung field CT chest without contrast Comparison: CT/CT/SR - CT CHEST WO IV CON - 07/13/23 13:57 EDT Findings: The heart size is normal. The visualized thyroid and mediastinum are unremarkable. Small tracheal diverticulum. Stable multiple pulmonary nodules: 3.8 mm in the right upper lobe series 4, image 27; 4 mm in the left lower lobe image 86; 4 mm in the right lower lobe image 98. Stable additional multiple micronodules. Gallstones in the gallbladder. No acute fractures. IMPRESSION: Stable in size of multiple pulmonary nodules. CT chest follow-up in 1 year as indicated. Fleischner Society 2017 Guidelines for incidentally detected indeterminate nodules in persons 35 years of age or older. Single Solid Nodules: 5 mm or smaller nodules need no follow-up in low risk, and [address] follow-up is optional in high risk patients. 6-8 mm nodules have optional [address] follow-up in low risk, and 6-[address] follow-up followed by 18-[address] follow-up if no change in high risk patients. 9 mm or larger nodules should consider CT, PET/CT, or biopsy at 3 months regardless of patient risk. Multiple Solid Nodules: 5 mm or smaller nodules need no follow-up in low risk, and [address] follow-up is optional in high risk patients. 6-8 mm nodules need 3-[address] follow-up followed by an optional 18-[address] follow-up regardless of patient risk. 9 mm or larger nodules should consider 3-[address] follow-up. For low risk 18-24 month follow-up is optional, whereas for high risk it is needed. Single Ground Glass Nodules: 5 mm or smaller nodules need no followup 6 mm and larger nodules need CT at 6-12 months to confirm persistence, then CT every 2 years until 5 years Single Subsolid Nodules: 5 mm or smaller nodules need no followup 6 mm and larger nodules need CT at 3-6 months to confirm persistence. If no change and solid component /T/lt;6 mm, then CT every year until 5 years Multiple Ground Glass or Subsolid Nodules: 5 mm or smaller nodules need CT at 3-6 months. If stable, optional CT at 2 and 4 years. 6 mm or larger nodules need CT at 3-6 months. Subsequent management based on most suspicious nodule This document has been electronically signed by: Feliciano Guerrier MD on 05/24/2024 13:15:23 Dictated By: Feliciano Guerrier MD Signed By: <Electronically signed by Feliciano Guerrier MD in OV> 05/24/24 1316 DD/ 131 TD/TT: 05/24/24 131 Backup Administrator: Assessment & Plan Assessment & Plan (1) Asthma: Code(s): J45.909 - Unspecified asthma, uncomplicated Category: Medical (2) Dyspnea: Code(s): R06.00 - Dyspnea, unspecified Category: Medical (3) Multiple pulmonary nodules: Code(s): R91.8 - Other nonspecific abnormal finding of lung field Category: Medical Plan Kathleen reports suboptimal control with Symbicort, will switch to Trelegy. Also discussed trialing antihistamine and continuing Flonase for allergic symptoms. She reports ongoing issues with sinus/ear fullness/drainage , will refer to ENT. We revisited the possibility of underestimated AHI through home sleep study however she would like to defer in lab sleep study at this time. Reviewed chest CT which revealed stable nodules <4mm, will repeat in one year to assess stability. If no changes then no need for further follow up. All questions were answered and patient is in agreement of plan. Will follow-up in 6-8 weeks or sooner if needed. Orders: Orders CT chest wo IV con 11 Months R91.8 - Other nonspecific abnormal finding of lung field Referrals Ear/Nose/Throat Referral H66.90 - Otitis media, unspecified, unspecified ear Medications: New nmgaajswbks-lwqslgiru-xqharzfd 200-62.5-25 mcg (Trelegy Ellipta) 1 inh inhalation DAILY 60 ea 3RF loratadine (Claritin) 10 mg PO DAILY 30 tabs 2RF Refilled fluticasone propionate 50 mcg/actuation 1 spray intranasal DAILY 48 mL 1RF Discontinued budesonide-formoterol 160-4.5 mcg/actuation (Symbicort) Discontinued Reason: Patient Completed Course 2 puffs inhalation Q12H 10.2 grams 3RF Coding Level of Care Code Est Pt Level 4 (80067) Diagnoses Asthma J45.909 Dyspnea R06.00 Multiple pulmonary nodules R91.8
[2024-06-13 11:19] VITALS: BP 148/80; PULSE 65; O2SAT 96; BMI 30.4
== END 2024-06-13 11:39 | disposition home or self-care (01) ==
LOC: HO.HPSW 11:12
PROVIDERS: PCP Internal Medicine; Visit Provider Nurse Practitioner Family
DX: J45.909 Unspecified asthma, uncomplicated (principal); R06.00 Dyspnea, unspecified; R91.8 Other nonspecific abnormal finding of lung field
CPT/HCPCS: 99214

== ENCOUNTER → 2024-06-13 11:12 | Outpatient (BNVA) | payer OTHER, SELFPAY | PROVIDERS: PCP Internal Medicine; Visit Provider Nurse Practitioner Family | DX: J45.909 Unspecified asthma, uncomplicated (principal); R06.00 Dyspnea, unspecified; R91.8 Other nonspecific abnormal finding of lung field; G47.33 Obstructive sleep apnea (adult) (pediatric); I10 Essential (primary) hypertension | CPT/HCPCS: 99212 ==

== ENCOUNTER 2024-07-25 10:34 | Outpatient (AMB) | payer OTHER, SELFPAY ==
--- NOTE | 2024-07-25 10:35 | A.OFFPC_ITS ---
Vital Signs 07/25/24 10:44 Height 5 ft 4 in Weight 178 lb BMI 30.6 BP 138/82 Blood Pressure Location Lt brachial Position Sitting Respiration 16 Pulse 92 Pulse Source Pulse Oximeter Temp 97.5 F Temp Source Temporal Artery Scan Pulse Oximetry (%) 98 Oxygen Delivery Method Room Air Intake Visit Reasons: Routine Intake Note: patient here for routine follow up [employer] Consultant Required: No Is last menstrual period known: No Post menopausal: No Patient : No Allergies No Known Allergies [No Known Allergies*] Allergy (Verified 07/25/24 10:41) Tobacco use date assessed: 07/25/24 Fall risk assessment: No Falls in past year Last assessed Fall Risk: 07/25/24 Dental Screening Dental Screen Date: 07/25/24 Did you have a dental visit in the last 12 months?: No Did you have a dental problem in the last 6 months where you did not have access to dental care?: No Was dental information given to patient?: Patient has dentist HPI HPI Comments History of Present Illness Details The patient is a 69 year old female with a past medical history of hypertension, hypothyroid, OA, CKD, osteopenia, [place] presenting for follow up. Last seen by pcp in March CV: On hctz, norvasc, atenolol. BP well controlled. She has seen cardiology in the past for palpitations and chest pain Asthma: following with pulmonology Has left knee pain-chronic, left heel pain, some right lower extremity pain Mammo 2023 Colonoscopy 2018 ROS see HPI PHYSICAL EXAM: GENERAL: Alert and oriented x 3. NAD EYES: EOMI. Anicteric. HENT: Moist mucous membranes. No scleral icterus. No cervical lymphadenopathy. LUNGS: Clear to auscultation bilaterally. CARDIOVASCULAR: Regular rate and rhythm. No murmur. No JVD. ABDOMEN: Soft, non-tender +bs EXTREMITIES: No edema. Non-tender. SKIN: No rashes or lesions. Warm. NEUROLOGIC: No focal neurological deficits. CN II-XII grossly intact PSYCHIATRIC: Cooperative. Appropriate mood and affect [facility] Medical History (Updated 07/25/24 @ 12:20 by Renuka Lerner MD) Carpal tunnel syndrome Asthma Hypertension Surgical History (Updated 07/24/24 @ 07:18 by Kell Conteh) History of colonoscopy (~10/08/18) History of ear surgery S/P thyroid surgery Family History Mother COPD (chronic obstructive pulmonary disease) Paternal Grandmother Stroke Social History Housing: Apartment Alcohol intake: current Alcohol intake frequency: holidays/special occasions only Patient Tobacco Use Status: Never used Tobacco e-Cigarette/Vaping Use: Never Used Second Hand Smoke Exposure: No Substance Use Type: Marijuana service: No Current occupational status: retired Current occupation: left handed Current occupational exposures/hazards: No Cognitive needs: No Hearing needs: Yes Vision needs: Yes Questionnaire ACT Questionnaire In the past 4 weeks, how much of the time did your asthma keep you from getting as much done at work, school or at home?: None of the time During the past 4 weeks, how often have you had shortness of breath?: More than once a day During the past 4 weeks, how often did your asthma symptoms wake you up at night or earlier than usual in the morning?: Not at all During the past 4 weeks, how often have you had to use your rescue inhaler or nebulizer medication?: 2-3 times a week How would you rate your asthma control during the past 4 weeks?: Poorly controlled ACT Interpretation: Positive Score: 16 Physical exam (Primary Care) Vital Signs: Last Vital Signs Temp 97.5 F 07/25/24 10:44 Pulse 92 07/25/24 10:44 Resp 16 07/25/24 10:44 BP 138/82 07/25/24 10:44 Pulse Ox 98 07/25/24 10:44 Oxygen Delivery Method Room Air 07/25/24 10:44 BMI result Body Mass Index 30.6 Tobacco/Smoking Status: Tobacco use Status Tobacco use date assessed 07/25/24 07/25/24 10:47 Patient Tobacco Use Status Never used Tobacco 07/25/24 10:39 e-Cigarette/Vaping Use Never Used 07/25/24 10:47 Coding Level of Care Code New Pt Level 4 (75561) Complex EM visit Add On G2211 Diagnoses Asthma, unspecified asthma severity, unspecified whether complicated, un specified whether persistent J45.909 Asthma severity: unspecified severity Asthma persistence: unspecified Asthma complication type: unspecified Primary hypertension I10 Hypertension type: primary hypertension Primary osteoarthritis of left knee M17.12 Osteoarthritis type: primary Additional Codes Asthma Control Questionnaire - ACT Interpretation: Positive ([id number]) Assessment & Plan Assessment & Plan (1) Asthma: Code(s): J45.909 - Unspecified asthma, uncomplicated Category: Medical Qualifiers: Asthma severity: unspecified severity Asthma persistence: unspecified Asthma complication type: unspecified Qualified Code(s): J45.909 - Unspecified asthma, uncomplicated (2) Hypertension: Code(s): I10 - Essential (primary) hypertension Category: Medical Qualifiers: Hypertension type: primary hypertension Qualified Code(s): I10 - Essential (primary) hypertension (3) Osteoarthritis of left knee: Code(s): M17.12 - Unilateral primary osteoarthritis, left knee Category: Medical Qualifiers: Osteoarthritis type: primary Qualified Code(s): M17.12 - Unilateral primary osteoarthritis, left knee Plan 69 yo to establish care past medical, surgical, social reviewed Chronic medical conditions are stable. topical for knee and foot-declines steroid injections Asthma is controlled on medications Labs ordered Orders: Orders TSH reflex Free T4 Today I10 - Essential (primary) hypertension, J45.909 - Unspecified asthma, uncomplicated, Z13.0 - Encounter for screening for diseases of the blood and blood-forming organs and certain disorders involving the immune mechanism, Z13.228 - Encounter for screening for other metabolic disorders Comprehensive Met. Panel Today I10 - Essential (primary) hypertension Complete Blood Count Auto Diff Today I10 - Essential (primary) hypertension, J4 5.909 - Unspecified asthma, uncomplicated, Z13.0 - Encounter for screening for diseases of the blood and blood-forming organs and certain disorders involving the immune mechanism, Z13.228 - Encounter for screening for other metabolic disorders Vitamin B12 and Folate Today I10 - Essential (primary) hypertension, J45.909 - Unspecified asthma, uncomplicated, Z13.0 - Encounter for screening for diseases of the blood and blood-forming organs and certain disorders involving the immune mechanism, Z13.228 - Encounter for screening for other metabolic disorders MM screening mammo BI Today Z12.31 - Encounter for screening mammogram for malignant neoplasm of breast Medications: New lidocaine-prilocaine 2.5-2.5 % 1 appl topical DAILY 30 grams 1RF Refilled celecoxib (Celebrex) 200 mg PO BID 30 days 60 caps 3RF
[2024-07-25 10:44] VITALS: BP 138/82; PULSE 92; RESP 16; TEMP 36.4; O2SAT 98; BMI 30.6
== END 2024-07-25 11:11 | disposition home or self-care (01) ==
LOC: HO.HMCHD 10:35
PROVIDERS: PCP Internal Medicine; Visit Provider Internal Medicine
DX: J45.909 Unspecified asthma, uncomplicated (principal); I10 Essential (primary) hypertension; M17.12 Unilateral primary osteoarthritis, left knee

== ENCOUNTER → 2024-07-25 10:34 | Outpatient (BNVA) | payer OTHER, SELFPAY | PROVIDERS: PCP Internal Medicine; Visit Provider Internal Medicine | DX: Z13.89 Encounter for screening for other disorder (principal) | CPT/HCPCS: 96160; 99202 ==

== ENCOUNTER 2024-07-25 11:17 | Outpatient (REF) | payer OTHER, SELFPAY ==
[2024-07-25 13:50] LABS: MANUAL DIFF FLAG NO
[2024-07-25 13:59] LABS: Basophils Percent Auto 0.5 % (0-2); Eosinophils Absolute Auto 0.1 X10*3/uL (0.0-0.4); Eosinophils Percent Auto 1.2 % (0-4); Hematocrit 42.5 % (37.0-47.0); Hemoglobin 14.5 g/dl (12.0-16.0); Imm Gran Abs Auto 0.02 X10*3/uL (0.00-0.03); Imm Gran Pct Auto 0.2 % (0.0-0.4); Lymphocytes Absolute Auto 3.3 X10*3/uL (1.2-4.9); Lymphocytes Percent Auto 39.4 % (20-40); Mean Corpuscular HGB Conc 34.1 g/dl (31.0-35.0); Mean Corpuscular Hemoglobin 31.7 pg (27.0-33.0); Mean Corpuscular Volume 92.8 fL (80.0-98.0); Mean Platelet Volume 10.1 fL (9.4-12.3); Monocytes Absolute Auto 0.8 X10*3/uL (0.1-1.2); Monocytes Percent Auto 9.8 % (2-11); Neutrophils Percent Auto 48.9 % (45-73); Platelet Count 175 X10*3/uL (160-400); Red Blood Count 4.58 X10*6/uL (4.20-5.50); White Blood Count 8.3 X10*3/uL (4.8-10.8)
[2024-07-25 14:27] LABS: Alanine Aminotransferase 32 U/L (0-31); Albumin Level 4.6 g/dL (3.5-5.0); Alkaline Phosphatase 66 U/L (39-117); Anion Gap 14 (12-20); Aspartate Amino Transferase 26 U/L (5-31); Bilirubin Total 0.8 mg/dL (0.0-1.0); Blood Urea Nitrogen 16 mg/dL (9-16); Carbon Dioxide 29 mmol/L (22-29); Chloride 105 mmol/L (96-108); Estimated Glomerular Filt Rate > 60; Glucose Random 100 mg/dL (60-115); Potassium 3.7 mmol/L (3.3-5.1); Sodium 144 mmol/L (135-145); Total Protein 7.4 g/dL (6.5-8.0)
[2024-07-25 14:41] LABS: Folate 14.6 ng/mL (> or = 4.0); Vitamin B12 528 pg/mL (200-900)
[2024-07-25 15:11] LABS: Free T4 (Free Thyroxine) 1.03 ng/dL (0.71-1.85)
== END 2024-07-25 11:18 | disposition home or self-care (01) ==
LOC: HO.10HDL 11:17
PROVIDERS: Visit Provider Internal Medicine
DX: J45.909 Unspecified asthma, uncomplicated (principal); I10 Essential (primary) hypertension; M17.12 Unilateral primary osteoarthritis, left knee; Z13.0 Encounter for screening for diseases of the blood and blood-forming organs and certain disorders involving the immune mechanism; Z13.228 Encounter for screening for other metabolic disorders
CPT/HCPCS: 36415; 80053; 82607; 82746; 84439; 84443; 85025; 96160; 99202

== ENCOUNTER 2024-08-05 10:39 | Outpatient (AMB) | payer OTHER, SELFPAY ==
--- NOTE | 2024-08-05 10:51 | A.OFFVIS_ITS ---
Vital Signs 08/05/24 10:53 Height 5 ft 4 in Weight 179 lb 2 oz BMI 30.7 BP 142/88 H Blood Pressure Location Rt brachial Position Sitting Pulse 84 Pulse Source Pulse Oximeter Pulse Oximetry (%) 97 Oxygen Delivery Method Room Air Intake Visit Reasons: fu resp. status Allergies No Known Allergies [No Known Allergies*] Allergy (Verified 08/05/24 11:00) HPI HPI fu resp. status: Details: Kathleen is a pleasant 69-year-old female, never tobacco smoker, everyday marijuana smoker, with underlying hypertension and asthma. She reported suboptimal control on Symbicort 160mcg BID continues to report dyspnea and exertion with intermittent wheezing. At the last visit, she was started on Trelegy with overall improvements. She reports intermittent dyspnea and dry cough otherwise denies chest tightness or wheezing. Patient also reported chronic issues with right ear previously under the care of ENT, and referral placed at last visit. She denies any visits to urgent care or hospitalizations related to respiratory distress since the last visit. [facility] Medical History (Updated 07/25/24 @ 12:20 by Renuka Lerner MD) Carpal tunnel syndrome Asthma Hypertension Surgical History (Updated 07/24/24 @ 07:18 by Kell Conteh) History of colonoscopy (~10/08/18) History of ear surgery S/P thyroid surgery Family History Mother COPD (chronic obstructive pulmonary disease) Paternal Grandmother Stroke Social History Housing: Apartment Alcohol intake: current Alcohol intake frequency: holidays/special occasions only Patient Tobacco Use Status: Never used Tobacco e-Cigarette/Vaping Use: Never Used Second Hand Smoke Exposure: No Substance Use Type: Marijuana service: No Current occupational status: retired Current occupation: left handed Current occupational exposures/hazards: No Cognitive needs: No Hearing needs: Yes Vision needs: Yes Review of Systems Const Denies chills, Denies excessive sweating, Denies fever(s), Denies headache(s) and Denies night sweats Eyes Denies dry eyes, Denies irritation and Denies itchy eyes ENT Reports Normal hearing present, Denies headache(s), Reports nasal congestion, Denies nasal discharge, Denies post nasal drip and Denies sore throat Card Denies chest pain, Denies chest pain at rest, Denies chest pain with activity, Denies claudication, Denies leg edema, Reports dyspnea on exertion, Denies ort hopnea and Denies paroxysmal nocturnal dyspnea Resp Denies change in phlegm color, Denies chest congestion, Reports cough, Denies hemoptysis, Denies excessive phlegm production, Denies pain on inspiration, Denies pain with cough, Reports dyspnea on exertion, Denies stridor and Denies wheezing Musc Denies myalgias Neuro Reports Normal hearing present and Denies headache(s) Endo Denies excessive sweating Yogi/Lymph Denies lymphadenopathy Aller/Immun Denies itchy eyes, Denies seasonal rhinorrhea and Denies wheezing Physical Exam Vital Signs: Last Vital Signs Pulse 84 08/05/24 10:53 BP 142/88 H 08/05/24 10:53 Pulse Ox 97 08/05/24 10:53 Oxygen Delivery Method Room Air 08/05/24 10:53 BMI result Body Mass Index 30.7 Const General: cooperative, healthy appearing, comfortable, no acute distress, well developed and alert Nutritional Appearance: obese Orientation/consciousness: patient oriented x3 Limitations: no limitations HEENT Head: Yes normal to inspection, Yes normocephalic and Yes atraumatic Ears: hearing grossly normal bilaterally and external ears normal Eyes General: appearance normal, both eyes and all related structures Eyelids: Yes eyelids normal Sclerae: sclerae normal EOM: EOMs intact bilaterally Neck Neck: Yes normal visual inspection and Yes no lymphadenopathy Lymphatic: no lymphadenopathy noted Chest Chest palpation & inspection: normal inspection of the chest Resp Effort & Inspection: normal respiratory effort, able to speak in complete sentences, no audible wheezes, no cough, no stridor, not tachypneic, no tripod positioning and no use of accessory muscles Auscultation: clear to auscultation bilaterally Cardio Jugular venous distension: no JVD Rate: regular rate Rhythm: regular rhythm Skin Other: warm, dry General skin exam: no rashes or lesions noted Neuro General: patient oriented x3 Cranial nerves: Yes Normal hearing present Cognition (Neuro): normal cognition Gait exam (Neuro): Normal gait present Extrem General: Yes normal to inspection, Yes capillary refill normal, Yes no clubbing, cyanosis or edema and Yes no pedal edema Psych Appearance: grossly normal and well kempt Speech and movement: Normal speech and movement present and Clear speech present Affect: normal affect Attitude: cooperative Thought process: Normal thought process present Thought content: Normal thought content present Insight: Good insight present (Psych) Judgement: Good judgement present (Psych) Assessment & Plan Assessment & Plan (1) Asthma: Code(s): J45.909 - Unspecified asthma, uncomplicated Category: Medical Qualifiers: Asthma complication type: unspecified Asthma persistence: unspecified Asthma severity: unspecified severity Qualified Code(s): J45.909 - Unspecified asthma, uncomplicated (2) Dyspnea: Code(s): R06.00 - Dyspnea, unspecified Category: Medical (3) Multiple pulmonary nodules: Code(s): R91.8 - Other nonspecific abnormal finding of lung field Category: Medical Plan Kathleen reports good control of respiratory symptoms on Trelegy and albuterol MDI, advised to continue. Encouraged use of Flonase for nasal congestion. All questions were answered and patient is in agreement of plan. Will follow-up in 3-6 months or sooner if needed. Medications: New fluticasone propionate 50 mcg/actuation (Flonase Allergy Relief) administer into each nostril 2 sprays intranasal DAILY 16 grams 3RF Refilled albuterol sulfate 90 mcg/actuation 2 inhalations inhalation Q4-6H PRN 1 ea 0RF shortness of breath or wheezing awbfjbekdxh-feewdyoiv-bcdatefb 200-62.5-25 mcg (Trelegy Ellipta) 1 inh inhalation DAILY 60 ea 6RF Coding Level of Care Code Est Pt Level 4 (34942) Diagnoses Asthma, unspecified asthma severity, unspecified whether complicated, unspecified whether persistent J45.909 Asthma complication type: unspecified Asthma persistence: unspecified Asthma severity: unspecified severity Dyspnea R06.00 Multiple pulmonary nodules R91.8
[2024-08-05 10:53] VITALS: BP 142/88; PULSE 84; O2SAT 97; BMI 30.7
== END 2024-08-05 11:16 | disposition home or self-care (01) ==
LOC: HO.HPSW 10:40
PROVIDERS: PCP Internal Medicine; Visit Provider Nurse Practitioner Family
DX: J45.909 Unspecified asthma, uncomplicated (principal); R06.00 Dyspnea, unspecified; R91.8 Other nonspecific abnormal finding of lung field
CPT/HCPCS: 99214

== ENCOUNTER → 2024-08-05 10:39 | Outpatient (BNVA) | payer OTHER, SELFPAY | PROVIDERS: PCP Internal Medicine; Visit Provider Nurse Practitioner Family | DX: J45.909 Unspecified asthma, uncomplicated (principal); R06.00 Dyspnea, unspecified; R91.8 Other nonspecific abnormal finding of lung field | CPT/HCPCS: 99212 ==

== ENCOUNTER 2024-10-20 10:29 | Outpatient (REF) | payer OTHER, SELFPAY ==
--- NOTE | ~2024-10-20 | MM_ITS ---
EXAMINATION: MM SCREENING DIGITAL BREAST TOMOSYNTHESIS, BILATERAL CLINICAL INFORMATION: Screening. Asymptomatic. COMPARISON: Mammography: Comparison is made with available priors TECHNIQUE: Digital breast mammography with tomosynthesis is performed in both the craniocaudal and mediolateral oblique views along with computer-aided detection (CAD). FINDINGS: There are scattered areas of fibroglandular density (ACR BI-RADS breast composition Category b). There are no significant masses, abnormal calcifications, or other abnormalities. MM/MM tomosynthesis screening BI IMPRESSION: No mammographic evidence of malignancy. ASSESSMENT: BI-RADS BI-RADS 1 - Negative RECOMMENDATION: Routine annual mammography screening. 1 year F/U This examination should not preclude the clinical evaluation of a suspicious palpable abnormality. This patient's information was entered into a reminder system with a target due date for their next mammogram. Electronically signed by: Nichelle Toledo DO 10/27/2024 03:52 PM EDT
== END 2024-10-20 10:30 | disposition home or self-care (01) ==
LOC: HO.MAMMO 10:29
PROVIDERS: PCP Internal Medicine; Visit Provider Internal Medicine
DX: Z12.31 Encounter for screening mammogram for malignant neoplasm of breast (principal)
CPT/HCPCS: 77063; 77067

== ENCOUNTER → 2024-10-20 10:45 | Outpatient (BNV) | payer OTHER, SELFPAY | PROVIDERS: PCP Internal Medicine; Visit Provider Internal Medicine | DX: Z12.31 Encounter for screening mammogram for malignant neoplasm of breast (principal) | CPT/HCPCS: 77063; 77067 ==